=== PATIENT | female | born 1945 | race Caucasian/White ===

== ENCOUNTER → 2016-10-05 | Outpatient (CLI) | payer MEDICARE ==
[2016-10-05 10:44] LABS: Blood Urea Nitrogen 27 mg/dL (7-17); Non-African American GFR(MDRD) 57 (>60 ml/min/1.73 sqM)
--- NOTE | 2016-10-05 11:34 | CT ---
EXAMINATION TYPE: CT abdomen wo/w con DATE OF EXAM: 10/05/2016 11:14 AM COMPARISON: NONE HISTORY: Renal cyst CT DLP: 1681 mGycm Automated exposure control for dose reduction was used. TECHNIQUE: Helical acquisition of images was performed from the lung bases through the top of iliac crest to include entire abdomen. CONTRAST: Performed with Oral Contrast and without and with IV Contrast, patient injected with 100 ml mL of Omn ipaque 300. FINDINGS: LUNG BASES: No significant abnormality is appreciated. LIVER/GB: No significant abnormality is appreciated. PANCREAS: No significant abnormality is seen. SPLEEN: No significant abnormality is seen. ADRENALS: No significant abnormality is seen. KIDNEYS: Long the inferior pole of the right kidney there is a 2 cm hypoechoic lesion measuring 4 Dian nsfield units compatible with simple cyst. Along the upper pole medial margin of the right kidney there is a 1.7 cm hypoechoic mass measuring 6 Hounsfield units compatible simple cyst. Lesion is well-circumscribed. Anterior mid cortex of the right kidney measures 4 4 mm and too small to characterize but also likely benign. No hydronephrosis or nephrolithiasis. There is a 3 mm upper pole left renal calculus which is nonobst ructing. BOWEL: No significant abnormality is seen. LYMPH NODES: No pathologic adenopathy. OSSEOUS STRUCTURES: Severe degenerative disc disease L2-L3. Bulging of the disc laterally to the left . Round lucent lesion along the right lower margin of the L1 vertebral body most likely related to sm all hemangioma. OTHER: Aorta of normal caliber. IMPRESSION: 1. Right renal cysts are Bosniak classification 1 simple benign cysts. 2. Nonobstructing 3 mm upper pole left renal calculus. 3. Severe degenerative disc disease L2-L3 with disc bulging.
== END | disposition home or self-care (01) ==
LOC: RADCTMAIN 10:06
PROVIDERS: ATTEND Family Medicine
DX: N20.0 Calculus of kidney (principal); N28.1 Cyst of kidney, acquired; N28.9 Disorder of kidney and ureter, unspecified
CPT/HCPCS: 82565; 84520; 74170; 36415; Q9967

== ENCOUNTER 2019-08-15 04:21 | Emergency (ER) | payer MEDICARE ==
[2019-08-15 04:29] VITALS: RESP 18; TEMP 98.7
[2019-08-15] MEDS ORDERED: SODIUM CHLORIDE 0.9% 500 ML 500 ML IV STA ×2 (04:32→05:40)
[2019-08-15] MEDS ORDERED: ONDANSETRON 4 MG/2 ML VIAL IVP STA ×2 (04:32→05:40)
[2019-08-15] MEDS ORDERED: KETOROLAC 30 MG/ML 1 ML VIAL IVP ONE (04:45)
[2019-08-15 04:50] LABS: Appearance,Urine Clear (Clear); Bacteria,Urine Rare /hpf; Bilirubin,Urine Negative (Negative); Blood,Urine Trace (Negative); Color,Urine Yellow; Glucose,Urine (UA) Negative (Negative); Ketones,Urine Negative (Negative); Leukocyte Esterase,Urine Moderate (Negative); Mucus,Urine Few /hpf; Nitrite,Urine Negative (Negative); PH, Urine 6.5 (5.0-8.0); Protein,Urine Trace (Negative); RBC,Urine 4 /hpf (0-5); Specific Gravity,Urine 1.016 (1.001-1.035); Squamous Epithelial Cell,Urine <1 /hpf (0-4); Urobilinogen,Urine <2.0 mg/dL (<2.0); WBC,Urine 11 /hpf (0-5)
[2019-08-15 04:51] LABS: Basophils % (A) 1 %; Eosinophils # (A) 0.1 k/uL (0-0.7); Eosinophils % (A) 1 %; HCT 41.2 % (34.0-46.0); HGB 13.7 gm/dL (11.4-16.0); Lymphocytes # (A) 0.9 k/uL (1.0-4.8); Lymphocytes % (A) 18 %; MCH 29.5 pg (25.0-35.0); MCHC 33.3 g/dL (31.0-37.0); MCV 88.6 fL (80.0-100.0); Mean Platelet Volume 8.5; Monocytes # (A) 0.2 k/uL (0-1.0); Monocytes % (A) 4 %; Neutrophils # (A) 3.7 k/uL (1.3-7.7); Neutrophils % (A) 74 %; Platelet Count 226 k/uL (150-450); RBC 4.65 m/uL (3.80-5.40); RDW 13.6 % (11.5-15.5)
[2019-08-15 05:00] LABS: Albumin 4.6 g/dL (3.5-5.0); Calcium 9.7 mg/dL (8.4-10.2); Potassium 4.4 mmol/L (3.5-5.1); Total Bilirubin 0.9 mg/dL (0.2-1.3); Total Protein 7.7 g/dL (6.3-8.2)
--- NOTE | 2019-08-15 05:10 | XR ---
EXAM: XR Abdomen, 1 View CLINICAL HISTORY: ITS.REASON XR Reason: left flank pain, concern for stone TECHNIQUE: Frontal supine view of the abdomen/pelvis. COMPARISON: No relevant prior studies available. FINDINGS: Gastrointestinal tract: Nonspecific bowel gas pattern with moderate stool in the ascending colon. No dilation. Organs: There is a punctate 2 mm calcific density overlying the left renal contour. No abnormal calcifications in the region of the left ureter or abnormal calcifications within the pelvis are identified however. Bones/joints: Unremarkable. IMPRESSION: There is a punctate 2 mm calcific density overlying the left renal contour. However, no abnormal calcifications are identified radiographically within the region of the left ureter or within the region of the pelvis.
[2019-08-15] MEDS ORDERED: MORPHINE SULFATE 4 MG/ML SYRINGE IVP STA (05:38)
--- NOTE | 2019-08-15 05:44 | ED ---
Abdominal Pain HPI - General Chief Complaint: Abdominal Pain Stated Complaint: abd pain Time Seen by Provider: 08/15/19 04:32 Source: patient Mode of arrival: ambulatory Limitations: no limitations - History of Present Illness Initial Comments: Vira is a pleasant 73-year-old female who presents the ER today for evaluation of left-sided flank pain. Patient reports she initially began expressing the pain on Tuesday evening, as a severe pain in her left flank with associated nausea however it improved. Patient reports that yesterday evening she got the pain again, pain is severe and uncontrolled. Pain is in the left flank radiating the left abdomen. Patient reports urinary frequency and hesitancy but no dysuria. Eyes any fevers chills or vomiting. - Related Data Allergies Allergy/AdvReac Type Severity Reaction Status Date / Time acetaminophen [From [place]] AdvReac Nausea & Verified 08/15/19 04:28 Vomiting hydrocodone [From [place]] AdvReac Nausea & Verified 08/15/19 04:28 Vomiting Review of Systems ROS Statement: Those systems with pertinent positive or pertinent negative responses have been documented in the HPI. ROS Other: All systems not noted in ROS Statement are negative. Past Medical History Past Medical History: Fibromyalgia, Rheumatoid Arthritis (RA) Additional Past Medical History / Comment(s): DBS in head, History of Any Multi-Drug Resistant Organisms: None Reported Additional Past Surgical History / Comment(s): DBS implantation, Past Psychological History: No Psychological Hx Reported Smoking Status: Never smoker Past Alcohol Use History: None Reported Past Drug Use History: None Reported General Exam - General Exam Comments Initial Comments: Physical Exam GENERAL: Patient is well-developed and well-nourished. Patient is nontoxic and well- hydrated and is in no distress. HENT: Normocephalic, Atraumatic. EYES: PERRL, EOMI PULMONARY: Unlabored respirations. No audible rales rhonchi or wheezing was noted. CARDIOVASCULAR: There is a regular rate and rhythm without any murmurs gallops or rubs. ABDOMEN: Soft and nontender with normal bowel sounds. Tenderness to percussion of the left flank No pulsatile masses SKIN: Skin is clear with no lesions or rashes and otherwise unremarkable. : Deferred NEUROLOGIC: Patient is alert and oriented x3. Moving all extremities spontaneously MUSCULOSKELETAL: Normal extremities with adequate strength and full range of motion. No lower extremity swelling or edema. No calf tenderness. PSYCHIATRIC: Normal psychiatric evaluation. Limitations: no limitations Course Vital Signs 08/15/19 08/15/19 08/15/19 04:24 05:28 06:49 Temperature 98.7 F Pulse Rate 70 70 62 Respiratory 18 18 18 Rate Blood Pressure 160/71 182/88 145/77 O2 Sat by Pulse 95 96 96 Oximetry Medical Decision Making - Medical Decision Making The patient was seen and evaluated history is obtained from the patient and at bedside 73-year-old female with no history of kidney stones presented with left-sided flank pain, patient also has no vascular history however urinalysis is relatively unremarkable computed tomography scan with contrast was ordered to evaluate both vascular and nonvascular structures in the abdomen Patient received Toradol and reported only minimal improvement in her discomfor t, Zofran and morphine were ordered Labs resulted with no significant abnormalities only a few blood cells in the urine and no signs of infection Computed tomography scan was reviewed there is no obvious stones no hydronephrosis no perinephric fat stranding Family there is findings of renal cyst and ovarian cyst. These findings were discussed with the patient states her pain was not her pelvic she doesn't feel any further imaging for that is indicated she declined ultrasound. At this time patient's pain has improved significantly she is comfortable with plan for discharge home despite no definitive findings for her pain. We did discuss possibility that she passed a kidney stone. All questions pertaining care were answered best my ability close return parameters were discussed and the patient was discharged home in stable condition. - Lab Data Result diagrams: 08/15/19 04:35 08/15/19 04:35 Lab Results 08/15/19 08/15/19 08/15/19 Range/Units 04:30 04:35 04:35 WBC 5.0 (3.8-10.6) k/uL RBC 4.65 (3.80-5.40) m/uL Hgb 13.7 (11.4-16.0) gm/dL Hct 41.2 (34.0-46.0) % MCV 88.6 (80.0-100.0) fL MCH 29.5 (25.0-35.0) pg MCHC 33.3 (31.0-37.0) g/dL RDW 13.6 (11.5-15.5) % Plt Count 226 (150-450) k/uL Neutrophils % 74 % Lymphocytes % 18 % Monocytes % 4 % Eosinophils % 1 % Basophils % 1 % Neutrophils # 3.7 (1.3-7.7) k/uL Lymphocytes # 0.9 L (1.0-4.8) k/uL Monocytes # 0.2 (0-1.0) k/uL Eosinophils # 0.1 (0-0.7) k/uL Basophils # 0.0 (0-0.2) k/uL Sodium 139 (137-145) mmol/L Potassium 4.4 (3.5-5.1) mmol/L Chloride 106 (98-107) mmol/L Carbon Dioxide 25 (22-30) mmol/L Anion Gap 8 mmol/L BUN 21 H (7-17) mg/dL Creatinine 1.00 (0.52-1.04) mg/dL Est GFR (CKD-EPI)AfAm 66 (>60 ml/min/1.73 sqM) Est GFR (CKD-EPI)NonAf 57 (>60 ml/min/1.73 sqM) Glucose 128 H (74-99) mg/dL Calcium 9.7 (8.4-10.2) mg/dL Total Bilirubin 0.9 (0.2-1.3) mg/dL AST 28 (14-36) U/L ALT 20 (9-52) U/L Alkaline Phosphatase 131 H (38-126) U/L Total Protein 7.7 (6.3-8.2) g/dL Albumin 4.6 (3.5-5.0) g/dL Lipase 80 (23-300) U/L Urine Color Yellow Urine Appearance Clear (Clear) Urine pH 6.5 (5.0-8.0) Ur Specific [place] 1.016 (1.001-1.035) Urine Protein Trace H (Negative) Urine Glucose (UA) Negative (Negative) Urine Ketones Negative (Negative) Urine Blood Trace H (Negative) Urine Nitrite Negative (Negative) Urine Bilirubin Negative (Negative) Urine Urobilinogen <2.0 (<2.0) mg/dL Ur Leukocyte Esterase Moderate H (Negative) Urine RBC 4 (0-5) /hpf Urine WBC 11 H (0-5) /hpf Ur Squamous Epith Cells <1 (0-4) /hpf Urine Bacteria Rare H (None) /hpf Urine Mucus Few H (None) /hpf Disposition Clinical Impression: Left flank pain, Ovarian cyst, left Disposition: HOME SELF-CARE Condition: Stable Instructions (If sedation given, give patient instructions): Flank Pain (ED) Is patient prescribed a controlled substance at d/c from ED?: No Referrals: Jane Vinson MD [Primary Care Provider] - 1-2 days
--- NOTE | 2019-08-15 06:00 | CT ---
EXAM: CT Abdomen and Pelvis With Intravenous Contrast CLINICAL HISTORY: flank pain TECHNIQUE: Axial computed tomography images of the abdomen and pelvis with intravenous contrast. CTDI is 23.6 mGy and DLP is 1055.1 mGy-cm. This CT exam was performed using one or more of the following dose reduction techniques: automated exposure control, adjustment of the mA and/or kV according to patient size, and/or use of iterative reconstruction technique. COMPARISON: 10/05/2016 FINDINGS: Lung bases: Subsegmental linear changes at the left lung base adjacent to the diaphragm are presumed atelectasis. ABDOMEN: Liver: Unremarkable. No mass. Gallbladder and bile ducts: Unremarkable. No calcified stones. No ductal dilation. Pancreas: Unremarkable. No mass. No ductal dilation. Spleen: Unremarkable. No splenomegaly. Adrenals: Unremarkable. No mass. Kidneys and ureters: There is a nonobstructive incidental 5 mm nephrolithiasis involving the superior pole left kidney. The kidneys demonstrate normal enhancement bilaterally. No ureteral stones or hydronephrosis identified. The cortical cyst involving the right kidney have increased with the largest measuring 2.7 cm superomedially from 2.3 cm previously. Stomach and bowel: Unremarkable. No obstruction. No mucosal thickening. PELVIS: Appendix: A normal caliber appendix is noted in the right lower quadrant lateral to the cecum. Cystic changes are suggested involving the left adnexa, poorly evaluated by CT examination. Bladder: Unremarkable. No mass. Reproductive: Unremarkable as visualized. ABDOMEN and PELVIS: Intraperitoneal space: Unremarkable. No free air. No significant fluid collection. Bones/joints: No acute fracture. No dislocation. Soft tissues: Unremarkable. Vasculature: Unremarkable. No abdominal aortic aneurysm. Lymph nodes: Unremarkable. No enlarged lymph nodes. IMPRESSION: 1. No ureteral stones or hydronephrosis identified. Incidental 5 mm nonobstructive nephrolithiasis involving the superior pole the left kidney. No bladder calcifications. 2. Probable cystic changes involving the left adnexa, poorly defined by CT evaluation. This is a presumed incidental finding. However, please correlate with clinical symptoms. 3. Normal appendix. No evidence for bowel obstruction. No free intraperitoneal fluid or pneumoperitoneum.
[2019-08-15 06:50] VITALS: BP 145/77; PULSE 62
== END 2019-08-15 07:17 | disposition home or self-care (01) ==
LOC: EC 04:21
DX: N83.202 Unspecified ovarian cyst, left side (principal); R31.9 Hematuria, unspecified; N28.1 Cyst of kidney, acquired; R11.0 Nausea; R39.11 Hesitancy of micturition; R35.0 Frequency of micturition; Z88.5 Allergy status to narcotic agent; Z88.6 Allergy status to analgesic agent; Z53.20 Procedure and treatment not carried out because of patient's decision for unspecified reasons
CPT/HCPCS: 99284; 96374; 96375 ×2; 96376; 36415; 80053; 83690; 85025; 81001; 87086; 74018; 74177; J2270; J2405; J1885; Q9967

== ENCOUNTER 2019-08-16 09:19 | Emergency (ER) | payer MEDICARE ==
[2019-08-16 09:32] VITALS: TEMP 98.6
--- NOTE | 2019-08-16 10:19 | ED ---
Abdominal Pain HPI - General Chief Complaint: Abdominal Pain Stated Complaint: kidney stones Time Seen by Provider: 08/16/19 10:02 Source: patient Mode of arrival: ambulatory Limitations: no limitations - History of Present Illness Initial Comments: Patient is a 73-year-old female presenting to the emergency Department with complaints of left-sided abdominal pain for the past 4 days. Patient was in the ER yesterday for same complaint and was told she probably passed a kidney stone. She did have imaging performed yesterday and they did see a 5 mm stone in the left kidney. The rest of her workup showed no other acute abnormalities. Patient was comfortable upon discharge however this morning patient is still having significant pain. Patient did go see her PCP yesterday who gave her Zofran for nausea as well as started her on Cipro. Patient states she is still nauseous this morning and states the pain has moved down to her left lower quadr ant. Patient denies fever, chills, vomiting, diarrhea. Patient has no other complaints at this time. Upon arrival to the ER, her vital signs are stable. - Related Data Allergies Allergy/AdvReac Type Severity Reaction Status Date / Time acetaminophen [From [place]] AdvReac Nausea & Verified 08/16/19 09:32 Vomiting hydrocodone [From [place]] AdvReac Nausea & Verified 08/16/19 09:32 Vomiting Review of Systems ROS Statement: Those systems with pertinent positive or pertinent negative responses have been documented in the HPI. ROS Other: All systems not noted in ROS Statement are negative. Past Medical History Past Medical History: Fibromyalgia, Rheumatoid Arthritis (RA) Additional Past Medical History / Comment(s): DBS in head, History of Any Multi-Drug Resistant Organisms: None Reported Additional Past Surgical History / Comment(s): DBS implantation, Past Psychological History: No Psychological Hx Reported Smoking Status: Never smoker Past Alcohol Use History: None Reported Past Drug Use History: None Reported General Exam - General Exam Comments Initial Comments: GENERAL: Well-appearing, well-nourished and in no acute distress. HEAD: Atraumatic, normocephalic. EYES: Pupils equal round and reactive to light, extraocular movements intact, sclera anicteric, conjunctiva are normal. ENT: TMs normal, nares patent, oropharynx clear without exudates. Moist mucous membranes. NECK: Normal range of motion, supple without lymphadenopathy or JVD. LUNGS: Breath sounds clear to auscultation bilaterally and equal. No wheezes rales or rhonchi. HEART: Regular rate and rhythm without murmurs, rubs or gallops. ABDOMEN: Tender to palpation of the left lower quadrant as well as left side of abdomen. Soft, normoactive bowel sounds. No guarding, no rebound. No masses appreciated. : Deferred EXTREMITIES: Normal range of motion, no pitting or edema. No clubbing or cyanosis. NEUROLOGICAL: Normal speech, normal gait. PSYCH: Normal mood, normal affect. SKIN: Warm, Dry, normal turgor, no rashes or lesions noted. Limitations: no limitations Course Vital Signs 08/16/19 08/16/19 08/16/19 09:29 09:32 10:32 Temperature 98.6 F 98.6 F Pulse Rate 69 69 69 Respiratory 20 20 20 Rate Blood Pressure 142/81 142/81 O2 Sat by Pulse 96 96 96 Oximetry 08/16/19 12:24 Temperature Pulse Rate 67 Respiratory 18 Rate Blood Pressure 141/75 O2 Sat by Pulse 96 Oximetry Medical Decision Making - Medical Decision Making Patient is 73-year-old female presenting with left sided abdominal pain 4 days. Patient was worked up yesterday the ER for same complaint and was diagnosed with possible kidney stone. Patient was comfortable upon discharge yesterday and returns today for continued pain and nausea. Patient did go to her PCP yesterday who started her on Cipro and Zofran. Vital signs are stable. KUB continues to show and left-sided nephrolithiasis approximate 4-5 mm. No other findings. Lab work is similar to yesterday's workup. Patient was given half a liter fluids as well as pain meds, Zofran and reports improvement in her s ymptoms. Patient is stable for discharge at this time. Patient will be given dose of Rocephin before DC. Patient will follow up with urology. Patient is agreeable with this plan of care. Return parameters were discussed with the patient she verbalized understanding. Case discussed with Dr. Boykin. - Lab Data Result diagrams: 08/16/19 09:50 08/16/19 09:50 Lab Results 08/16/19 08/16/19 08/16/19 Range/Units 09:50 09:50 09:50 WBC 5.4 (3.8-10.6) k/uL RBC 5.13 (3.80-5.40) m/uL Hgb 15.1 (11.4-16.0) gm/dL Hct 45.9 (34.0-46.0) % MCV 89.5 (80.0-100.0) fL MCH 29.4 (25.0-35.0) pg MCHC 32.8 (31.0-37.0) g/dL RDW 13.6 (11.5-15.5) % Plt Count 202 (150-450) k/uL Neutrophils % 81 % Lymphocytes % 10 % Monocytes % 5 % Eosinophils % 1 % Basophils % 1 % Neutrophils # 4.4 (1.3-7.7) k/uL Lymphocytes # 0.6 L (1.0-4.8) k/uL Monocytes # 0.3 (0-1.0) k/uL Eosinophils # 0.1 (0-0.7) k/uL Basophils # 0.0 (0-0.2) k/uL Sodium 141 (137-145) mmol/L Potassium 4.1 (3.5-5.1) mmol/L Chloride 105 (98-107) mmol/L Carbon Dioxide 26 (22-30) mmol/L Anion Gap 10 mmol/L BUN 20 H (7-17) mg/dL Creatinine 1.13 H (0.52-1.04) mg/dL Est GFR (CKD-EPI)AfAm 57 (>60 ml/min/1.73 sqM) Est GFR (CKD-EPI)NonAf 49 (>60 ml/min/1.73 sqM) Glucose 116 H (74-99) mg/dL Calcium 10.1 (8.4-10.2) mg/dL Total Bilirubin 0.9 (0.2-1.3) mg/dL AST 30 (14-36) U/L ALT 20 (9-52) U/L Alkaline Phosphatase 135 H (38-126) U/L Total Protein 8.8 H (6.3-8.2) g/dL Albumin 5.2 H (3.5-5.0) g/dL Urine Color Yellow Urine Appearance Cloudy H (Clear) Urine pH 6.0 (5.0-8.0) Ur Specific [place] 1.031 (1.001-1.035) Urine Protein 2+ H (Negative) Urine Glucose (UA) Negative (Negative) Urine Ketones 1+ H (Negative) Urine Blood Trace H (Negative) Urine Nitrite Negative (Negative) Urine Bilirubin Negative (Negative) Urine Urobilinogen 2.0 (<2.0) mg/dL Ur Leukocyte Esterase Trace H (Negative) Urine RBC 6 H (0-5) /hpf Urine WBC 4 (0-5) /hpf Ur Squamous Epith Cells 3 (0-4) /hpf Calcium Oxalate Crystal Occasional H (None) /hpf Urine Bacteria Rare H (None) /hpf Hyaline Casts 37 H (0-2) /lpf Urine Mucus Many H (None) /hpf Disposition Clinical Impression: Left flank pain Disposition: HOME SELF-CARE Condition: Stable Instructions (If sedation given, give patient instructions): Abdominal Pain (ED) Additional Instructions: Please return to the Emergency Department if symptoms worsen or any other concerns. Follow-up with urology. Continue with antibiotics as prescribed. Use Zofran as needed for nausea. Is patient prescribed a controlled substance at d/c from ED?: No Referrals: Jane Vinson MD [Primary Care Provider] - 1-2 days Roger Nazario MD [STAFF PHYSICIAN] - 1-2 days
[2019-08-16 10:29] LABS: Basophils % (A) 1 %; Eosinophils # (A) 0.1 k/uL (0-0.7); Eosinophils % (A) 1 %; HCT 45.9 % (34.0-46.0); HGB 15.1 gm/dL (11.4-16.0); Lymphocytes # (A) 0.6 k/uL (1.0-4.8); Lymphocytes % (A) 10 %; MCH 29.4 pg (25.0-35.0); MCHC 32.8 g/dL (31.0-37.0); MCV 89.5 fL (80.0-100.0); Mean Platelet Volume 8.5; Monocytes # (A) 0.3 k/uL (0-1.0); Monocytes % (A) 5 %; Neutrophils # (A) 4.4 k/uL (1.3-7.7); Neutrophils % (A) 81 %; Platelet Count 202 k/uL (150-450); RBC 5.13 m/uL (3.80-5.40); RDW 13.6 % (11.5-15.5); WBC 5.4 k/uL (3.8-10.6)
[2019-08-16 10:37] LABS: Appearance,Urine Cloudy (Clear); Bacteria,Urine Rare /hpf; Bilirubin,Urine Negative (Negative); Blood,Urine Trace (Negative); Calcium Oxalate Crystals,Urine Occasional /hpf; Color,Urine Yellow; Glucose,Urine (UA) Negative (Negative); Hyaline Casts,Urine 37 /lpf (0-2); Ketones,Urine 1+ (Negative); Leukocyte Esterase,Urine Trace (Negative); Mucus,Urine Many /hpf; Nitrite,Urine Negative (Negative); Protein,Urine 2+ (Negative); RBC,Urine 6 /hpf (0-5); Specific Gravity,Urine 1.031 (1.001-1.035); Squamous Epithelial Cell,Urine 3 /hpf (0-4); WBC,Urine 4 /hpf (0-5)
[2019-08-16 10:41] LABS: Albumin 5.2 g/dL (3.5-5.0); Calcium 10.1 mg/dL (8.4-10.2); Potassium 4.1 mmol/L (3.5-5.1); Total Bilirubin 0.9 mg/dL (0.2-1.3); Total Protein 8.8 g/dL (6.3-8.2)
[2019-08-16] MEDS: ONDANSETRON 4 MG/2 ML VIAL IVP STA (10:47)
[2019-08-16] MEDS: KETOROLAC 30 MG/ML 1 ML VIAL IVP STA (10:47)
--- NOTE | 2019-08-16 11:04 | XR ---
KUB HISTORY: Left abdominal pain Frontal KUB and 2 images There are calcifications superimposed of the left kidney one of which measures approximately 4 to 5 m m, additional calcification may be present immediately to the medial aspect at this level the upper p ole the left kidney. Overlying bowel gas may obscure underlying detail. There is a scoliotic curvatur e to the spine. No evident pneumoperitoneum or bowel obstruction. Bone mineralization is maintained. Generator present over the right pectoral region. impression: Left-sided nephrolithiasis is favored. Scoliosis and additional findings above.
[2019-08-16] MEDS: traMADol 50 MG STARTER PACK 3 TAB BTL PO STA (12:21)
[2019-08-16] MEDS: cefTRIAXone IN SWFI 1,000 MG/10 ML SYRINGE IVP STA (12:21)
[2019-08-16] MEDS: SODIUM CHLORIDE 0.9% 500 ML 500 ML IV STA (12:21)
[2019-08-16] MEDS: MORPHINE SULFATE 4 MG/ML SYRINGE IVP STA (12:22)
[2019-08-16 12:25] VITALS: BP 141/75; PULSE 67; RESP 18
== END 2019-08-16 12:40 | disposition home or self-care (01) ==
LOC: EC 09:19
DX: R10.32 Left lower quadrant pain (principal); R11.0 Nausea; N20.0 Calculus of kidney; Z88.5 Allergy status to narcotic agent; Z88.6 Allergy status to analgesic agent
CPT/HCPCS: 36415; 80053; 85025; 81001; 74018; 99284; 96374; 96375 ×3; J2270; J2405; J0696; J1885

== ENCOUNTER 2019-08-21 12:12 | Day surgery (SDC) | payer MEDICARE ==
[2019-08-20 13:33] VITALS: BMI 25.8
[~2019-08-21 12:12] MED LIST: DEXAMETHASONE SOD PHOSPHATE 10 MG/ML 1 ML VIAL IV ONE; LACTATED RINGERS 1,000 ML IV SCH; LIDOCAINE 1% 20 ML VIAL (10MG/ML) FOR IV START INTRADERMA PRN; MIDAZOLAM 2 MG/2 ML VIAL IV PRN; ONDANSETRON 4 MG/2 ML VIAL IVP ONE; SCOPOLAMINE 1.5MG/72HR PATCH TRANSDERM ONE
--- NOTE | 2019-08-21 12:43 | XR ---
EXAMINATION TYPE: XR KUB DATE OF EXAM: 08/21/2019 COMPARISON: 08/16/2019 HISTORY: Left-sided back pain. Presurgical evaluation for left-sided nephrolithiasis. TECHNIQUE: Single upright view of the abdomen was obtained FINDINGS: There is redemonstration of a 5 mm left renal calculus. Additional questionable calculus se en more medial overlying the left renal shadow remains ill-defined. Mild degree colonic fecal stasis. Lung bases are well aerated. Redemonstration of a levoscoliosis of the thoracolumbar junction and de generative changes of the spine. No dilated large or small bowel. IMPRESSION: Similar 5 mm left renal calculus and additional faint possible second more medial left re nal calculus.
[2019-08-21] MEDS ORDERED: fentaNYL (PF) 50 MCG/ML 2 ML AMP IV ONE (12:53)
[2019-08-21] MEDS ORDERED: ePHEDrine SULFATE/0.9% NACL/PF 50 MG/5 ML SYRINGE IV ONE (13:14)
[2019-08-21] MEDS ORDERED: LIDOCAINE 1% INJ 10MG/ML (20 ML MDV) ONE (13:14)
[2019-08-21] MEDS ORDERED: PROPOFOL 10 MG/ML 20 ML VIAL IV ONE (13:14)
[2019-08-21] MEDS ORDERED: fentaNYL (PF) 50 MCG/ML 2 ML AMP ONE (13:14)
[2019-08-21] MEDS ORDERED: MIDAZOLAM 2 MG/2 ML VIAL ONE (13:14)
[2019-08-21] MEDS ORDERED: SODIUM CHLORIDE 0.9% 50 ML with ceFAZolin 1,000 MG IV ONE ×2 (13:19)
[2019-08-21] MEDS ORDERED: IOPAMIDOL-370 50ML BTL IRRIGATION ONE (13:36)
[2019-08-21 14:27] VITALS: TEMP 99
--- NOTE | 2019-08-21 14:38 | FL ---
EXAMINATION TYPE: FL urography retrograde DATE OF EXAM: 08/21/2019 COMPARISON: NONE HISTORY: Left renal stone. TECHNIQUE: Fluoroscopy. FINDINGS: Fluoroscopic guidance was provided during left ureter stone treatment procedure performed by Dr. Hahn. A total of 57 seconds of fluoroscopic time was utilized during the procedure and singl e spot intraoperative image is acquired. Single image acquired shows advancement of catheter and cont rast injection of left renal pelvis. IMPRESSION: As Above.
--- NOTE | 2019-08-21 14:53 | P.OP ---
Date of Procedure: 08/21/19 Preoperative Diagnosis: left flank pain, left renal stone Postoperative Diagnosis: left flank pain, left tubular stone Procedure(s) Performed: cystoscopy, left retrograde pyelogram, left ureteroscopy with intraoperative pyelogram, placement of 624 double-J catheter Anesthesia: MARIELENA Surgeon: Luis Hahn Estimated Blood Loss (ml): 10 Pathology: none sent Condition: stable Disposition: PACU Indications for Procedure: the patient is 73. She is referred to Dr. Crowell in the emergency room with severe left flank pain going on for 1 week. She had a computed tomography scan identifying a 5 mm upper pole stone without obstruction. She had no infection in the urine. She's not had a bowel movement a week. It was felt that the stone was a cause of her pain. I was not totally certain the patient adamantly wish to have the stone out. She thus comes for ureteroscopy retrograde pyelogram stone removal the risks and complications were outlined. Description of Procedure: the patient is brought to the operating suite. Given a general endotracheal anesthesia. She's placed lithotomy position with sterile prep and drape. The stone was seen on KUB but not easily seen on fluoroscopy. Cystoscopy with a 23- [place] sheath identifies a normal urethra. The ureters orifices are normal bladder mucosa is unremarkable. Within a cone-tipped catheter a left retrograde pyelograms performed the ureters of normal course and caliber there is no filling defect or obstruction. The ureter drained nicely. The collecting system was delicate and and quite spidery. There is no distinct filling defect noted. I passed an 035 wire up into the collecting system. Over the wires passed [id number] reentry sheath. The inner sheath is removed. Through the 13-Gibraltarian sheath and passed the flexible ureteroscope into the collecting system. I tediously look through the complete collecting system all the upper and middle pole and the lower pole calyces both major and minor. I do not see evidence of the stone. A pullback of the renal pelvis I perform an intraoperative nephrographic nephrostogram to see if I can see any filling defect or obvious stone. I do not. I then again make sure I look in each major and minor calyx to see if there is any stone and there is not. I therefore assumed that this must be a parenchymal or tubular stone. I really look at the computed tomography scan and KUB. I do one more look throughout the collecting system see no stone. I removed the ureteroscope. Through the sheath I passed a wire. I removed the sheath and over the wires passed a 6 x 24 double-J catheter will remain in for 48 hours to deal with the sheath edema. Patient awake and returned recovery room good condition Impression I do not have an immediate cause for this patient's left flank pain. The calcification seen is probably tubular or parenchymal. At this juncture the options are to do nothing, to do shockwave lithotripsy.refer to a Medical Center. I will insist that she have some bowel activity before anything else gets done. We may consider a second opinion if we cannot find an obvious cause for her pain.
[2019-08-21] MEDS: HYDROmorphone 0.5 MG/0.5 ML SYRINGE IVP PRN ×2 (15:01→15:21)
[2019-08-21 15:32] VITALS: RESP 16
[2019-08-21 16:23] VITALS: BP 154/77; PULSE 63
[2019-08-21] MEDS ORDERED: ACETAMINOPHEN TAB 500 MG TAB PO ONE (16:26)
== END 2019-08-21 17:02 | disposition home or self-care (01) ==
LOC: OR 12:12
PROVIDERS: ATTEND Urology
DX: N20.0 Calculus of kidney (principal); K59.00 Constipation, unspecified; M79.7 Fibromyalgia; M06.9 Rheumatoid arthritis, unspecified; R25.1 Tremor, unspecified; Z96.89 Presence of other specified functional implants; Z88.5 Allergy status to narcotic agent
CPT/HCPCS: 52351; 52332; 74420; 74018; C2625; C1758; C1769; J2250; J1100; J2405; J0690; J2001; J3010; J2704; J1170; Q9967

== ENCOUNTER → 2019-09-07 | Outpatient (CLI) | payer MEDICARE ==
--- NOTE | 2019-09-07 09:24 | US ---
EXAMINATION TYPE: US pelvis complete transvag. There is DATE OF EXAM: 09/07/2019 COMPARISON: None CLINICAL HISTORY: 74-year-old female N83.202 Unspecified ovarian cyst, left side. Patient states whil e looking for renal stones, cyst was seen on ovary. Left side discomfort but states she has chronic back pain. TECHNIQUE: Transabdominal sonographic images of the pelvis were acquired. Transvaginal sonographic images were medically necessary to better assess the following anatomy: Ovaries, endometrium. Color D oppler and spectral waveform analysis of the ovarian arteries and veins. Date of LMP: Unknown, FINDINGS: EXAM MEASUREMENTS: Uterus: 7.2 x 5.3 x 3.1 cm Endometrial Stripe: 0.2 cm Left Ovary: 3.0 x 2.8 x 1.9 cm 1. Uterus: Anteverted. Heterogenous. No focal masses or lesions seen. 2. Endometrium: Fluid visualized within endometrial cavity. The stripe itself appears thin. 3. Right Ovary: Obscured by overlying bowel gas 4. Left Ovary: cystic appearing lesion with internal echoes = 2.5 x 2.5 x 1.6 cm and internal septat ion. Spectral, color and waveform doppler imaging shows good arterial and venous flow within the left ov judah; there is no evidence for ovarian torsion. 5. Bilateral Adnexa: wnl 6. Posterior cul-de-sac: no free fluid 7. Cervix: Vascular hypoechoic lesion visualized anteriorly measuring 1.3 x 1.0 x 0.5 cm . Some addit ional heterogeneous material within the endocervical canal. IMPRESSION: 1. Possible 1.3 similar lesion within the anterior cervix. Consider Pap smear and possibly female pel esha MRI to further evaluate. 2. Some heterogeneous material within the endocervical canal. Correlate with direct inspection and Pa p smear as indicated. 3. Small amount of fluid within the uterine cavity. 4. Mildly complex cystic lesion of the left ovary measures 2.5 cm. This can be further characterized on MRI. 5. Right ovary not visualized.
== END | disposition home or self-care (01) ==
LOC: RADUSWWP 07:33
PROVIDERS: ATTEND Family Medicine
DX: N83.292 Other ovarian cyst, left side (principal); R93.89 Abnormal findings on diagnostic imaging of other specified body structures
CPT/HCPCS: 76830; 76856; 93976

== ENCOUNTER → 2020-09-15 | Outpatient (CLI) | payer MEDICARE ==
--- NOTE | 2020-09-15 12:46 | US ---
EXAMINATION TYPE: US carotid duplex BILAT DATE OF EXAM: 09/15/2020 COMPARISON: NONE CLINICAL HISTORY: 75-year-old female R09.89 CAROTID BRUIT. TECHNIQUE: Carotid duplex ultrasound examination. Indirect Doppler criteria was utilized. FINDINGS: EXAM MEASUREMENTS: RIGHT: Peak Systolic Velocity (PSV) cm/sec ----- Right CCA: 70.5 ----- Right ICA: 76.3 ----- Right ECA: 42.9 ICA/CCA ratio: 1.1 RIGHT: End Diastole cm/sec ----- Right CCA: 18.8 ----- Right ICA: 27.9 ----- Right ECA: 0.0 LEFT: Peak Systolic Velocity (PSV) cm/sec ----- Left CCA: 97.1 ----- Left ICA: 120.5 ----- Left ECA: 56.3 ICA/CCA ratio: 1.2 LEFT: End Diastole cm/sec ----- Left CCA: 24.5 ----- Left ICA: 33.7 ----- Left ECA: 10.6 VERTEBRALS (direction of flow): Right Vertebral: Antegrade Left Vertebral: Antegrade Rhythm: Normal Drywall Taper notes: Bilateral intimal thickening, no elevated velocities, no significant stenosis. IMPRESSION: No hemodynamically significant internal carotid artery stenosis on either side. Criteria for Assigning % of Stenosis / Diameter reduction (Estimation based on the indirect measurements of the internal carotid artery velocities (ICA PSV). 1. Normal (no stenosis)=ICA PSV < 125 cm/s: ratio < 2.0: ICA EDV<40 cm/s. 2. Less than 50% stenosis=ICA PSV < 125 cm/s: ratio < 2.0: ICA EDV<40 cm/s. 3. 50 to 69% stenosis=ICA PSV of 125 to 230 cm/s: ration 2.0 ? 4.0: ICA EDV 40-100 cm/s. 4. Greater than 70% stenosis to near occlusion= ICA PSV > 230 cm/s: ratio > 4.0: ICA EDV > 100 cm/s. 5. Near occlusion= ICA PSV velocities may be low or undetectable: variable ratio and ICA EDV. 6. Total occlusion=unable to detect flow.
--- NOTE | 2020-09-15 18:41 | ECHOF ---
Referral Reason:R06.00 dyspnea MEASUREMENTS -------- HEIGHT: 172.7 cm WEIGHT: 83.0 kg BP: RVIDd: 3.1 cm (< 3.3) IVSd: 1.2 cm (0.6 - 1.1) LVIDd: 4.6 cm (3.9 - 5.3) LVPWd: 1.2 cm (0.6 - 1.1) IVSs: 1.5 cm LVIDs: 4.0 cm LVPWs: 1.3 cm LA Diam: 3.6 cm (2.7 - 3.8) LAESV Index (A-L): 31.88 ml/m Ao Diam: 2.9 cm (2.0 - 3.7) AV Cusp: 2.2 cm (1.5 - 2.6) LA Diam: 3.8 cm (2.7 - 3.8) MV EXCURSION: 18.105 mm (> 18.000) MV EF SLOPE: 64 mm/s (70 - 150) EPSS: 0.6 cm MV E Lewis: 0.41 m/s MV DecT: 279 ms MV A Lewis: 0.70 m/s MV E/A Ratio: 0.59 RAP: 5.00 mmHg RVSP: 28.04 mmHg FINDINGS -------- Sinus rhythm. This was a technically good study. LV size, wall thickness and systolic function are normal, with an EF greater than 55%. The left nancy tricular size is normal. The right ventricle is normal in size. LA is midly dilated 29-33ml/m2. The right atrial size is normal. The aortic valve is trileaflet, and appears structurally normal. No aortic stenosis or regurgitation. Mild mitral regurgitation is present. Mild tricuspid regurgitation present. Right ventricular systolic pressure is normal at < 35 mmHg. There is no pulmonic regurgitation present. The aortic root size is normal. There is no pericardial effusion. CONCLUSIONS -------- 1. LV size, wall thickness and systolic function are normal, with an EF greater than 55%. 2. The left ventricular size is normal. 3. The right ventricle is normal in size. 4. LA is midly dilated 29-33ml/m2. 5. The right atrial size is normal. 6. Mild mitral regurgitation is present. 7. Mild tricuspid regurgitation present. 8. The aortic root size is normal. 9. There is no pericardial effusion. LEAD BASED PAINT TECHNICIAN: Nancy Moralez RDCS
== END | disposition home or self-care (01) ==
LOC: RADUSWWP 10:53
PROVIDERS: ATTEND Family Medicine
DX: I08.1 Rheumatic disorders of both mitral and tricuspid valves (principal); R09.89 Other specified symptoms and signs involving the circulatory and respiratory systems
CPT/HCPCS: 93306; 93880

== ENCOUNTER → 2020-10-29 | Outpatient (CLI) | payer MEDICARE ==
--- NOTE | 2020-10-29 18:45 | BD ---
EXAMINATION TYPE: Axial Bone Density DATE OF EXAM: 10/29/2020 COMPARISON: 03/05/2015 CLINICAL HISTORY: 75-year-old female postmenopausal screening Height: 5 FT 9 3/4 IN Weight: 188 FRAX RISK QUESTIONS: Alcohol (3 or more units per day): NO Family History (Parent hip fracture): NO Glucocorticoids (More than 3mos): NO (Ex: prednisone, prednisolone, methylprednisolone, dexamethasone, and hydrocortisone). History of Fracture in Adulthood: YES Secondary Osteoporosis: 1. Type 1 Diabetes: NO 2. Hyperthyroidism: NO 3. Menopause before 45: NO 4. Malnutrition: NO 5. Chronic liver disease: NO Rheumatoid Arthritis: YES Current Tobacco Use: NO RISK FACTORS HISTORY OF: Family History of Osteoporosis: YES Active: YES Diet low in dairy products/other sources of calcium: NO Postmenopausal woman: AGE 53 Take estrogen and/or progesterone medications: NONE Lost more than 2 inches in height since high school: YES MEDICATIONS: Additional Medications: LYRICA, PROPANOLOL, FOLIC ACID, METHOTREXATE, Additional History: RT TIBIA FX AUG 2020 EXAM MEASUREMENTS: Bone mineral densitometry was performed using the [employer] System. Bone mineral density as measured about the Lumbar spine is: ----- L1-L4(G/cm2): 1.226 T Score Values are as follows: ----- L2: 0.3 ----- L3: 1.9 ----- L4: 0.1 ----- L1-L4: 0.4 Bone mineral density has: INCREASED 7.9 % since study of: 2014 Bone mineral density about the R hip (g/cm2): 0.856 Bone mineral density about the L hip (g/cm2): 0.897 T Score values are as follows: -----R Neck: -1.3 -----L Neck: -1.0 -----R Total: -1.5 -----L Total: -1.1 Bone mineral density has: DECREASED -3.0 % since study of: 2014 IMPRESSION: Osteopenia (T Score between -2.5 and -1). There is slightly increased risk of fracture and the patient may be considered for treatment. Re-Screen 2-5 years. NOTE: T-SCORE=SD OF THE YOUNG ADULT MEAN.
--- NOTE | 2020-11-05 07:59 | MM ---
Reason for exam: screening (asymptomatic). Last mammogram was performed 4 years and 8 months ago. History: Patient is postmenopausal. Cyst aspiration of both breasts. Physical Findings: A clinical breast exam by your physician is recommended on an annual basis and results should be correlated with mammographic findings. MG 3D Screening Mammo W/Cad Bilateral CC, MLO, and XCCL view(s) were taken. Prior study comparison: July 18, 2019, mammogram, performed at [facility]. July 12, 2017, mammogram, performed at [facility]. March 10, 2016, bilateral MG 3d screening mammo w/cad. March 05, 2015, bilateral MG screening mammo w CAD. The breast tissue is heterogeneously dense. This may lower the sensitivity of mammography. Focal asymmetry left breast, stable. No significant changes when compared with prior studies. ASSESSMENT: Benign, BI-RAD 2 RECOMMENDATION: Routine screening mammogram of both breasts in 1 year.
== END ==
LOC: RADMAMWWP 09:20
PROVIDERS: ATTEND Family Medicine
DX: Z12.31 Encounter for screening mammogram for malignant neoplasm of breast (principal); M85.80 Other specified disorders of bone density and structure, unspecified site; Z78.0 Asymptomatic menopausal state
CPT/HCPCS: 77063; 77067; 77080

== ENCOUNTER → 2020-12-17 | Outpatient (CLI) | payer MEDICARE ==
--- NOTE | 2020-12-17 16:05 | US ---
EXAMINATION TYPE: US transvaginal DATE OF EXAM: 12/17/2020 COMPARISON: 09/07/2019 CLINICAL HISTORY: Ovarian Cyst N83.20. h/o left ovarian cyst, some pelvic pain in LLQ TECHNIQUE: TV. Transvaginal sonographic images Date of LMP: 22yrs ago EXAM MEASUREMENTS: Uterus: 6.9 x 3.6 x 3.1 cm Endometrial Stripe: 0.3 cm Right Ovary: not seen Left Ovary: 1.7 x 2.3 x 2.9 cm 1. Uterus: Anteverted heterogeneous 2. Endometrium: wnl 3. Right Ovary: not seen due to atrophy and bowel gas 4. Left Ovary: cystic area persists from previous exam, 2.8 x 1.5 x 1.1cm septated cyst seen. Previo us measurement 2.5 x 2.5 x 1.6 cm. 5. Bilateral Adnexa: wnl 6. Posterior cul-de-sac: wnl IMPRESSION: 1. Complex cyst left ovary remaining present from comparison was may be slightly smaller than compari son. Consider additional workup
== END | disposition home or self-care (01) ==
LOC: RADUSWWP 14:53
PROVIDERS: ATTEND Pharmacist
DX: N83.202 Unspecified ovarian cyst, left side (principal)
CPT/HCPCS: 76830

== ENCOUNTER → 2021-08-03 | Outpatient (CLI) | payer MEDICARE ==
--- NOTE | 2021-08-03 21:21 | XR ---
EXAMINATION TYPE: XR ribs LT w pa chest xray DATE OF EXAM: 08/03/2021 CLINICAL HISTORY: Chest and left-sided rib pain. TECHNIQUE: Single frontal view of the chest is obtained. Frontal and oblique images left-sided ribs. COMPARISON: None FINDINGS: There is mild chronic parenchymal change with patchy left basilar opacity. Right lung is c lear. The cardiac silhouette size is within normal limits. Overlying stimulator device right chest d escends the right neck outside the field of view. Underlying scoliotic curvature. Dedicated images of the left-sided ribs show no acute displaced fracture. Overlying soft tissues are unremarkable. Impression: 1. Patchy left basilar infiltrate and/or atelectasis. 2. No acute displaced left-sided rib fractures.
--- NOTE | 2021-08-03 21:46 | CT ---
EXAMINATION TYPE: CT abdomen pelvis wo con DATE OF EXAM: 08/03/2021 HISTORY: Left flank pain. CT DLP: 743 mGycm. Automated Exposure Control for Dose Reduction was Utilized. TECHNIQUE: CT scan of the abdomen and pelvis is performed without oral or IV contrast. COMPARISON: CT abdomen and pelvis August 15, 2019 FINDINGS: Within the limitations of a non-contrast study, the following observations are made. LUNG BASES: No significant abnormality is appreciated. LIVER/GB: No significant abnormality is appreciated. PANCREAS: No significant abnormality is seen. SPLEEN: No significant abnormality is seen. ADRENALS: No significant abnormality is seen. KIDNEYS: Stable 5 mm nonobstructing calculus left kidney upper pole level axial image 38. Stable part ially exophytic 2.8 cm thin-walled cyst medially upper pole of the right kidney axial image 39 and sl ightly larger partially exophytic thin-walled 3.2 cm cyst lower pole of the right kidney axial image 63. No hydronephrosis identified bilaterally. BOWEL: No suspicious small or large bowel dilatation. Stomach poorly distended and thus suboptimally evaluated. GENITAL ORGANS: Anteverted uterus redemonstrated. No suspicious adnexal masses. Few scattered tiny bi lateral pelvic phleboliths. LYMPH NODES: No greater than 1cm abdominal or pelvic lymph nodes are appreciated. OSSEOUS STRUCTURES: [id number] disc space narrowing L2-L3 level. Moderate disc space narrowin g left L4-L5 level. Multilevel facet arthropathy mid to lower lumbar spine. OTHER: No significant additional abnormality is seen. IMPRESSION: Stable 5 mm nonobstructing upper pole left renal calculus. No hydronephrosis or obstructi ng ureter calculi bilaterally. No suspicious new or Acute findings seen from most recent CT.
== END | disposition home or self-care (01) ==
LOC: RADCTMAIN 16:00
PROVIDERS: ATTEND Family Medicine
DX: N20.0 Calculus of kidney (principal); R91.8 Other nonspecific abnormal finding of lung field
CPT/HCPCS: 74176

== ENCOUNTER → 2021-11-30 | Outpatient (CLI) | payer MEDICARE ==
--- NOTE | 2021-11-30 19:17 | US ---
EXAMINATION TYPE: US kidneys/renal and bladder DATE OF EXAM: 11/30/2021 COMPARISON: 08/03/2021 CT CLINICAL HISTORY: 76-year-old female N18.31 CKD STAGE 3. TECHNIQUE: Multiple sonographic images of the kidneys and bladder are obtained. FINDINGS: EXAM MEASUREMENTS: Right Kidney: 11.3 x 5.7 x 5.3 cm Left Kidney: 12.5 x 6.2 x 5.0 cm Post Void Residual Volume: 5.1 mL Right Kidney: Cortical cysts measuring 1). 3.0 x 2.8 x 3.0 cm. 2). 2.5 x 3.0 x 2.4cm. No hydronephros is. Left Kidney: Shadowing echogenic foci upper pole measuring 0.6 x 0.8 x 0.6cm. No hydronephrosis. Bladder: wnl Bilateral Jets seen: Yes Normal Post Void Residual: Yes IMPRESSION: 1. No hydronephrosis. 2. A couple benign cortical cysts in the right kidney measuring up to 3.0 cm. 3. Nonobstructive 6 mm left renal calculus.
== END | disposition home or self-care (01) ==
LOC: RADUSWWP 11:02
PROVIDERS: ATTEND Internal Medicine Nephrology
DX: N20.0 Calculus of kidney (principal); N28.1 Cyst of kidney, acquired
CPT/HCPCS: 76770

== ENCOUNTER → 2022-01-20 | Outpatient (CLI) | payer MEDICARE ==
--- NOTE | 2022-01-20 16:19 | US ---
EXAMINATION TYPE: US pelvic complete DATE OF EXAM: 01/20/2022 COMPARISON: CT & US 2020 CLINICAL HISTORY: N83.209 UNSPECIFIED OVARIAN CYST, UNSPECIFIED SIDE. Follow up left ovarian cyst TECHNIQUE: . Transabdominal sonographic images of the pelvis were acquired. Transvaginal sonographi c images were medically necessary to better assess the following anatomy: uterus and ovaries Date of LMP: 15+ years ago EXAM MEASUREMENTS: Uterus: 6.4 x 2.9 x 4.1 cm Endometrial Stripe: 0.2 cm Right Ovary: not seen Left Ovary: 2.5 x 1.0 x 2.3 cm 1. Uterus: anteverted, heterogeneous 2. Endometrium: fluid within endo 3. Right Ovary: not seen due to overlying bowel gas 4. Left Ovary: 1.4 x 1.1 x 1.6cm cystic area 5. Bilateral Adnexa: wnl 6. Posterior cul-de-sac: wnl IMPRESSION: 1. Left ovarian cyst. Follow-up in 6 weeks following the next normal menstrual period can be performe d. 2. Some minimal fluid is within the endometrial canal. 3. Nonvisualization of the right ovary during this exam
== END | disposition home or self-care (01) ==
LOC: RADUSWWP 14:56
PROVIDERS: ATTEND Pharmacist
DX: N83.202 Unspecified ovarian cyst, left side (principal)
CPT/HCPCS: 76830; 76856

== ENCOUNTER → 2022-03-16 | Outpatient (CLI) | payer MEDICARE ==
--- NOTE | 2022-03-17 09:53 | MM ---
Reason for Exam: Screening (asymptomatic). Last mammogram was performed 1 year(s) and 5 month(s) ago. Patient History: Menarche at age 15. First Full-Term at age 30. Postmenopausal. Bilateral Cyst Aspiration. Risk Values: Yoko 5 year model risk: 2.0%. NCI Lifetime model risk: 4.5%. Prior Study Comparison: 07/12/2017 Screening Mammogram, [facility]. 07/18/2019 Screening Mammogram, [facility]. 10/29/2020 Bilateral Screening Mammogram, [facility]. Tissue Density: The breast tissue is heterogeneously dense. This may lower the sensitivity of mammography. Findings: Analyzed By CAD. 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 There are a few scattered benign-appearing round calcifications bilaterally redemonstrated. There is no suspicious group of microcalcifications or new suspicious mass in either breast. Overall Assessment: Benign, BI-RAD 2 Management: Screening Mammogram of both breasts in 1 year. Some advised bilateral ultrasound surveillance in patients with background dense tissue. Electronically signed and approved by: Jose Duncan M.D.
== END | disposition home or self-care (01) ==
LOC: RADMAMWWP 09:15
PROVIDERS: ATTEND Family Medicine
DX: Z12.31 Encounter for screening mammogram for malignant neoplasm of breast (principal); R92.1 Mammographic calcification found on diagnostic imaging of breast; Z78.0 Asymptomatic menopausal state
CPT/HCPCS: 77063; 77067

== ENCOUNTER → 2023-05-16 | Outpatient (CLI) | payer MEDICARE ==
--- NOTE | 2023-05-17 22:29 | MM ---
Reason for Exam: Screening (asymptomatic). Last mammogram was performed 1 year(s) and 2 month(s) ago. Patient History: Menarche at age 15. First Full-Term at age 30. Postmenopausal. Bilateral Cyst Aspiration. Risk Values: Yoko 5 year model risk: 2.0%. NCI Lifetime model risk: 4.2%. Prior Study Comparison: 07/18/2019 Screening Mammogram, [facility]. 10/29/2020 Bilateral Screening Mammogram, [facility]. 03/16/2022 Bilateral MG 3D screening mammo w/cad, [facility]. Tissue Density: The breast tissue is heterogeneously dense. This may lower the sensitivity of mammography. Findings: Analyzed By CAD. Possible increasing regional grouped calcifications lateral posterior left breast for which further magnification views are recommended. Unchanged global asymmetry centrally in the left breast. Otherwise, no significant change. Overall Assessment: Incomplete: need additional imaging evaluation, BI-RAD 0 Management: Special View Mammogram of the left breast. 2 include mag CC, mag ML, and 3-D ML views. [facility] will attempt to contact patient to return for supplemental views and ultrasound if indicated. Electronically signed and approved by: Leni Hall M.D. Radiologist
== END | disposition home or self-care (01) ==
LOC: RADMAMWWP 15:05
PROVIDERS: ATTEND Family Medicine
DX: Z12.31 Encounter for screening mammogram for malignant neoplasm of breast (principal); Z78.0 Asymptomatic menopausal state
CPT/HCPCS: 77063; 77067

== ENCOUNTER → 2023-05-19 | Outpatient (CLI) | payer MEDICARE ==
--- NOTE | 2023-05-19 12:04 | MM ---
Reason for Exam: Additional evaluation requested from abnormal screening. Last screening mammogram was performed less than 1 month ago. Patient History: Menarche at age 15. First Full-Term at age 30. Postmenopausal. Bilateral Cyst Aspiration. Risk Values: Yoko 5 year model risk: 2.0%. NCI Lifetime model risk: 4.2%. Prior Study Comparison: 03/10/2016 Bilateral Screening Mammogram, [facility]. 07/12/2017 Screening Mammogram, [facility]. 07/18/2019 Screening Mammogram, [facility] 10/29/2020 Bilateral Screening Mammogram, [facility]. 03/16/2022 Bilateral MG 3D screening mammo w/cad, [facility]. 05/16/2023 Bilateral MG 3D screening mammo w/cad, [facility]. Tissue Density: Left: The breast tissue is heterogeneously dense. This may lower the sensitivity of mammography. Findings: Analyzed By CAD. There are loosely dispersed calcification seen upper outer quadrant left breast without suspicious cluster identified this time. Overall Assessment: Benign, BI-RAD 2 Management: Screening Mammogram of both breasts in 1 year. . Results were given to the patient verbally at the time of exam. Patient should continue monthly self-breast exams. A clinical breast exam by your physician is recommended on an annual basis. This exam should not preclude additional follow-up of suspicious palpable abnormalities. Note on Yoko scores and lifetime risk: 1. A Yoko score greater than 3% is considered moderate risk. If this is the case, consider specialist referral to assess eligibility for a risk reducing agent. 2. If overall lifetime risk for the development of breast cancer is 20% or higher, the patient may qualify for future screening with alternating mammogram and breast MRI. Electronically signed and approved by: Jason Lr M.D. Radiologis
== END | disposition home or self-care (01) ==
LOC: RADMAMWWP 10:57
PROVIDERS: ATTEND Family Medicine
DX: R92.8 Other abnormal and inconclusive findings on diagnostic imaging of breast (principal); Z78.0 Asymptomatic menopausal state
CPT/HCPCS: 77065; G0279; 77061

== ENCOUNTER → 2023-07-11 | Outpatient (CLI) | payer MEDICARE ==
--- NOTE | 2023-07-11 14:44 | US ---
EXAMINATION TYPE: US carotid duplex BILAT DATE OF EXAM: 07/11/2023 COMPARISON: NONE CLINICAL INDICATION: Female, 77 years old with history of R09.89 SYM OF CIRCULATORY SYSTEM; stenosis TECHNIQUE: Carotid duplex ultrasound examination. Indirect Doppler criteria was utilized. 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 No suspicious ve locity elevation. Criteria for Assigning % of Stenosis / Diameter reduction (Estimation based on the indirect measurements of the internal carotid artery velocities (ICA PSV). 1. Normal (no stenosis)=ICA PSV < 125 cm/s: ratio < 2.0: ICA EDV<40 cm/s. 2. Less than 50% stenosis=ICA PSV < 125 cm/s: ratio < 2.0: ICA EDV<40 cm/s. 3. 50 to 69% stenosis=ICA PSV of 125 to 230 cm/s: ration 2.0 ? 4.0: ICA EDV 40-100 cm/s. 4. Greater than 70% stenosis to near occlusion= ICA PSV > 230 cm/s: ratio > 4.0: ICA EDV > 100 cm/s. 5. Near occlusion= ICA PSV velocities may be low or undetectable: variable ratio and ICA EDV. 6. Total occlusion=unable to detect flow.
== END | disposition home or self-care (01) ==
LOC: RADUSWWP 11:49
PROVIDERS: ATTEND Family Medicine
DX: R09.89 Other specified symptoms and signs involving the circulatory and respiratory systems (principal)
CPT/HCPCS: 93880

== ENCOUNTER → 2024-02-08 | Outpatient (CLI) | payer MEDICARE ==
[2024-02-08 18:01] LABS: African American GFR (CKD) 32 (>60 ml/min/1.73 sqM); Blood Urea Nitrogen 37 mg/dL (7-17); Non-African American GFR(CKD) 28 (>60 ml/min/1.73 sqM)
--- NOTE | 2024-02-08 18:54 | CT ---
EXAMINATION TYPE: CT abdomen pelvis wo con CT DLP: 622.5 mGycm, Automated exposure control for dose reduction was used. DATE OF EXAM: 02/08/2024 6:37 PM COMPARISON: 08/03/2021 CLINICAL INDICATION:Female, 78 years old with history of R10.32 LEFT LOWER QUADRANT PAIN; LLQ pain x2 days. TECHNIQUE: Axial CT abdomen pelvis wo con;Sagittal and coronal reformats were created on a separate workstation. Contrast used: mL of , (none if empty) Oral contrast used: with Oral Contrast (none if empty) FINDINGS: LOWER CHEST: Unremarkable ABDOMEN LIVER: Unremarkable GALLBLADDER AND BILE DUCTS: Unremarkable. PANCREAS: Unremarkable. SPLEEN: Unremarkable. ADRENAL GLANDS: Unremarkable. KIDNEYS AND URETERS: Mild right hydronephrosis secondary obstructing 6 mm calculus at the abdominal p elvic junction. Smaller calculus seen immediately behind this calculus measuring 3 mm. No right renal calculi. No right hydronephrosis. Renal cortical probable cyst in the right. PELVIS BLADDER: Unremarkable REPRODUCTIVE: Unremarkable. ABDOMEN & PELVIS STOMACH AND BOWEL: No evidence of bowel obstruction. PERITONEUM/RETROPERITONEUM: No evidence of pneumoperitoneum or free fluid. VASCULATURE: No evidence of aortic aneurysm. MUSCULOSKELETAL: No acute osseous abnormalities LYMPH NODES: No gross evidence for lymphadenopathy. SOFT TISSUE/ABDOMINAL WALL: Fat-containing umbilical hernia. IMPRESSION: Mild right hydronephrosis secondary obstructing 6 mm calculus at the ureteropelvic junction. Tiny 3 m m calculus also immediately next to this calculus. No right renal calculi. No right hydronephrosis.
== END | disposition home or self-care (01) ==
LOC: RADCTMAIN 16:32
PROVIDERS: ATTEND Family Medicine
DX: N13.2 Hydronephrosis with renal and ureteral calculous obstruction (principal); N18.31 Chronic kidney disease, stage 3a
CPT/HCPCS: 36415; 74176; 82565; 84520

== ENCOUNTER 2024-02-09 09:59 | Observation (INO) | payer MEDICARE ==
--- NOTE | 2024-02-09 10:22 | ED ---
Abdominal Pain HPI - General Chief Complaint: Abdominal Pain Stated Complaint: Pain managment Time Seen by Provider: 02/09/24 10:17 Source: patient, RN notes reviewed Mode of arrival: ambulatory - History of Present Illness Initial Comments: 78-year-old female presented to the ER with a chief complaint of left flank pain. Patient reports pain started approximately 2 days ago and has been persistent. She reports laying flat at night mildly improves her pain. She en dorses associated nausea and vomiting. She was seen yesterday by outpatient clinic and had laboratory studies obtained. She was found to have stage III kidney disease. CT was also obtained showing a 6 mm calculus in the left UPJ with a 3 mm calculus immediately next to this calculus. No right renal calculus or right-sided hydronephrosis. She was not sent home on any medications. She reports that she received a phone call from her physician telling her to report to the ER for pain management. Patient denies any fevers or chills. Denies any dysuria or hematuria, chest pain, shortness of breath or peripheral edema. - Related Data Home Medications Medication Instructions Recorded Confirmed Folic Acid 1 mg PO DAILY 08/20/19 02/09/24 Pregabalin [Lyrica] 150 mg PO BID 08/20/19 02/09/24 metHOTREXate sodium [Methotrexate] 20 mg PO LORENZO 08/20/19 02/09/24 Allergies Allergy/AdvReac Type Severity Reaction Status Date / Time codeine AdvReac Nausea & Verified 02/09/24 11:54 Vomiting hydrocodone [From [place]] AdvReac Nausea & Verified 02/09/24 11:54 Vomiting Review of Systems ROS Statement: Those systems with pertinent positive or pertinent negative responses have been documented in the HPI. ROS Other: All systems not noted in ROS Statement are negative. Past Medical History Past Medical History: Fibromyalgia, Rheumatoid Arthritis (RA) Additional Past Medical History / Comment(s): deep brain stimulator for essential tremors, kidney stone History of Any Multi-Drug Resistant Organisms: None Reported Additional Past Surgical History / Comment(s): DBS (deep brain stimulator) implantation, adarsh cataracts Past Anesthesia/Blood Transfusion Reactions: No Reported Reaction Past Psychological History: No Psychological Hx Reported Past Alcohol Use History: None Reported Past Drug Use History: None Reported - Past Family History Mother Family Medical History: No Reported History General Exam General appearance: alert, in no apparent distress Respiratory exam: Present: normal lung sounds bilaterally. Absent: respiratory distress, wheezes, rales, rhonchi, stridor Cardiovascular Exam: Present: regular rate, normal rhythm, normal heart sounds. Absent: systolic murmur, diastolic murmur, rubs, gallop, clicks GI/Abdominal exam: Present: soft, tenderness (Left lower quadrant), normal bowel sounds. Absent: distended, guarding, rebound, rigid Back exam: Present: normal inspection, CVA tenderness (L) Neurological exam: Present: alert, oriented X3, CN II-XII intact Skin exam: Present: warm, dry, intact, normal color. Absent: rash Course Vital Signs 02/09/24 02/09/24 10:00 12:00 Temperature 98.2 F Pulse Rate 63 59 L Respiratory 16 16 Rate Blood Pressure 164/72 194/86 O2 Sat by Pulse 96 98 Oximetry - Reevaluation(s) Reevaluation #1: 02/09/24 13:[address] Nazario who advised on admission to medicine with urology on consult. 02/09/24 13:39 Case discussed with brianne Luna, who accepts medical admission. Medical Decision Making - Medical Decision Making Was pt. sent in by a medical professional or institution (, PA, ACCOUNTS RECEIVABLE SUPERVISOR, urgent care, hospital, or [facility]...) When possible be specific @ -Patient sent here by Dr. Peterson for evaluation of nephrolithiasis. Did you speak to anyone other than the patient for history (EMS, parent, family, police, friend...)? What history was obtained from this source @ -No Did you review nursing and triage notes (agree or disagree)? Why? @ -I reviewed and agree with nursing and triage notes Were old charts reviewed (outside hosp., previous admission, EMS record, old EKG, old radiological studies, urgent care reports/EKG's, [facility] records)? Report findings @ -I reviewed laboratory studies and CT report and image from 02-08-2024. CT abdomen pelvis significant for a left sided hydronephrosis secondary to obstructing 6 mm calculus at the UPJ with a 3 mm calculus adjacent. No right renal calculi or right-sided hydronephrosis. Laboratory studies significant for a BARB (BUN 37, creatinine 1.76) eGFR 28. Differential Diagnosis (chest pain, altered mental status, abdominal pain women, abdominal pain men, vaginal bleeding, weakness, fever, dyspnea, syncope, headache, dizziness, GI bleed, back pain, seizure, CVA, palpatations, mental health, musculoskeletal)? @ -Differential Back Pain: Strain, zoster, cauda equina syndrome, epidural abscess, vertebral osteomyelitis, discitis, fracture, subluxation, disc herniation, DJD, spinal stenosis, dissection, AAA, pancreatitis, peptic ulcer disease, pyelonephritis, kidney stone, this is not meant to be an all-inclusive list. EKG interpreted by me (3pts min.). @ -None X-rays interpreted by me (1pt min.). @ -None done CT interpreted by me (1pt min.). @ -None done U/S interpreted by me (1pt. min.). @ -None done What testing was considered but not performed or refused? (CT, X-rays, U/S, labs)? Why? @ -None What meds were considered but not given or refused? Why? @ -None Did you discuss the management of the patient with other professionals (professionals i.e. , PA, ACCOUNTS RECEIVABLE SUPERVISOR, lab, RT, psych nurse, director social service, guard manager, teacher, pharmaceutical officer, housing case manager)? Give summary @ -Yes, case discussed with Dr. Nazario, supervisor metal furniture fabrication urology, who advised on admission to medicine with urology on consult. Case also discussed with Brianne Luna, who accepts medical admission. Was smoking cessation discussed for >3mins.? @ -No Was critical care preformed (if so, how long)? @ -No Were there social determinants of health that impacted care today? How? (Homelessness, low income, unemployed, alcoholism, drug addiction, transportation, low edu. Level, literacy, decrease access to med. care, nursing home, rehab)? @ -No Was there de-escalation of care discussed even if they declined (Discuss DNR or withdrawal of care, Hospice)? DNR status @ -No What co-morbidities impacted this encounter? (DM, HTN, Smoking, COPD, CAD, Cancer, CVA, ARF, Chemo, Hep., AIDS, mental health diagnosis, sleep apnea, morbid obesity)? @ -CKD Was patient admitted / discharged? Hospital course, mention meds given and route, prescriptions, significant lab abnormalities, going to OR and other pertinent info. @ -Admitted. 78 year old female presenting to the ER with a chief complaint of left flank pain. Patient seen in outpatient clinic yesterday and had CT abdomen pelvis performed. CT significant for left-sided hydronephrosis secondary to obstructing 6 mm calculus at the UPJ with a 3 mm calculus adjacent. Patient also found to have CKD with EGFR 28, BUN 37, creatinine 1.76. History and physical exam completed. Vitals significant for temperature 98.2, pulse 63, respiratory 16, blood pressure 164/72, oxygen saturation 96% on room air. Patient no signs of acute distress and nontoxic-appearing. Left CVA tenderness with radiation to left lower quadrant. Normal bowel sounds. Laboratory studies obtained remarkable for white blood cell count 8.3, lactic 0.8. BARB (BUN 35, creatinine 2.10) with an estimated GFR 22. Urinalysis significant for large blood and leukocyte esterases with 10 white blood cells. Results discussed with patient, all questions answered. Admission considered for hydronephrosis due to obstructing calculus and urology consult. Case discussed with Dr. Nazario, on- call urologist, who advises on admission to medicine with urology on consult. Case also discussed with brianne Luna, who accepts medical admission. Urology on consult. Patient agreeable for admission. Patient admitted in stable condition. Case discussed with ED attending, Dr. Franco. Undiagnosed new problem with uncertain prognosis? @ -No Drug Therapy requiring intensive monitoring for toxicity (Heparin, Nitro, Insulin, Cardizem)? @ -No Were any procedures done? @ -No Diagnosis/symptom? @ -Hydronephrosis due to obstructing calculus/BARB Acute, or Chronic, or Acute on Chronic? @ -Acute Uncomplicated (without systemic symptoms) or Complicated (systemic symptoms)? @ -Complicated Side effects of treatment? @ -No Exacerbation, Progression, or Severe Exacerbation? @ -No Poses a threat to life or bodily function? How? (Chest pain, [place], [place], pneumonia, PE, COPD, DKA, ARF, appy, cholecystitis, CVA, Diverticulitis, Homicidal, Suicidal, threat to staff... and all critical care pts) @ -Low likelihood - Lab Data Result diagrams: 02/09/24 11:05 02/09/24 11:05 Lab Results 02/09/24 02/09/24 02/09/24 Range/Units 11:05 11:05 11:05 WBC 8.3 (3.8-10.6) k/uL RBC 4.78 (3.80-5.40) m/uL Hgb 13.7 (11.4-16.0) gm/dL Hct 43.3 (34.0-46.0) % MCV 90.5 (80.0-100.0) fL MCH 28.6 (25.0-35.0) pg MCHC 31.6 (31.0-37.0) g/dL RDW 13.5 (11.5-15.5) % Plt Count 177 (150-450) k/uL MPV 8.5 Neutrophils % 79 % Lymphocytes % 13 % Monocytes % 5 % Eosinophils % 1 % Basophils % 1 % Neutrophils # 6.5 (1.3-7.7) k/uL Lymphocytes # 1.1 (1.0-4.8) k/uL Monocytes # 0.4 (0-1.0) k/uL Eosinophils # 0.1 (0-0.7) k/uL Basophils # 0.1 (0-0.2) k/uL Sodium 139 (137-145) mmol/L Potassium 4.5 (3.5-5.1) mmol/L Chloride 108 H (98-107) mmol/L Carbon Dioxide 25 (22-30) mmol/L Anion Gap 6 mmol/L BUN 35 H (7-17) mg/dL Creatinine 2.10 H (0.52-1.04) mg/dL Est GFR (CKD-EPI)AfAm 26 (>60 ml/min/1.73 sqM) Est GFR (CKD-EPI)NonAf 22 (>60 ml/min/1.73 sqM) Glucose 87 (74-99) mg/dL Plasma Lactic Acid Garry (0.7-2.0) mmol/L Calcium 9.0 (8.4-10.2) mg/dL Total Bilirubin 1.2 (0.2-1.3) mg/dL AST 30 (14-36) U/L ALT 25 (4-34) U/L Alkaline Phosphatase 124 (38-126) U/L Total Protein 7.0 (6.3-8.2) g/dL Albumin 4.4 (3.5-5.0) g/dL Urine Color Light Yellow Urine Appearance Clear (Clear) Urine pH 6.0 (5.0-8.0) Ur Specific [place] 1.021 (1.001-1.035) Urine Protein Trace H (Negative) Urine Glucose (UA) Negative (Negative) Urine Ketones Negative (Negative) Urine Blood Large H (Negative) Urine Nitrite Negative (Negative) Urine Bilirubin Negative (Negative) Urine Urobilinogen <2.0 (<2.0) mg/dL Ur Leukocyte Esterase Large H (Negative) Urine RBC >182 H (0-5) /hpf Urine WBC 10 H (0-5) /hpf Ur Squamous Epith Cells 1 (0-4) /hpf Hyaline Casts 1 (0-2) /lpf Urine Mucus Few H (None) /hpf 02/09/24 Range/Units 11:05 WBC (3.8-10.6) k/uL RBC (3.80-5.40) m/uL Hgb (11.4-16.0) gm/dL Hct (34.0-46.0) % MCV (80.0-100.0) fL MCH (25.0-35.0) pg MCHC (31.0-37.0) g/dL RDW (11.5-15.5) % Plt Count (150-450) k/uL MPV Neutrophils % % Lymphocytes % % Monocytes % % Eosinophils % % Basophils % % Neutrophils # (1.3-7.7) k/uL Lymphocytes # (1.0-4.8) k/uL Monocytes # (0-1.0) k/uL Eosinophils # (0-0.7) k/uL Basophils # (0-0.2) k/uL Sodium (137-145) mmol/L Potassium (3.5-5.1) mmol/L Chloride (98-107) mmol/L Carbon Dioxide (22-30) mmol/L Anion Gap mmol/L BUN (7-17) mg/dL Creatinine (0.52-1.04) mg/dL Est GFR (CKD-EPI)AfAm (>60 ml/min/1.73 sqM) Est GFR (CKD-EPI)NonAf (>60 ml/min/1.73 sqM) Glucose (74-99) mg/dL Plasma Lactic Acid Garry 0.8 (0.7-2.0) mmol/L Calcium (8.4-10.2) mg/dL Total Bilirubin (0.2-1.3) mg/dL AST (14-36) U/L ALT (4-34) U/L Alkaline Phosphatase (38-126) U/L Total Protein (6.3-8.2) g/dL Albumin (3.5-5.0) g/dL Urine Color Urine Appearance (Clear) Urine pH (5.0-8.0) Ur Specific [place] (1.001-1.035) Urine Protein (Negative) Urine Glucose (UA) (Negative) Urine Ketones (Negative) Urine Blood (Negative) Urine Nitrite (Negative) Urine Bilirubin (Negative) Urine Urobilinogen (<2.0) mg/dL Ur Leukocyte Esterase (Negative) Urine RBC (0-5) /hpf Urine WBC (0-5) /hpf Ur Squamous Epith Cells (0-4) /hpf Hyaline Casts (0-2) /lpf Urine Mucus (None) /hpf - Radiology Data Radiology results: report reviewed (02/08/24), image reviewed (02/08/24) Disposition Clinical Impression: Chronic kidney disease (CKD), Hydronephrosis concurrent with and due to calculi of kidney and ureter Disposition: ADMITTED IP TO THIS HOSP Condition: Good Referrals: Bryce Peterson MD [Primary Care Provider] - 1-2 days Time of Disposition: 13:40
[2024-02-09] MEDS: ONDANSETRON 4 MG/2 ML VIAL IVP STA (10:55)
[2024-02-09] MEDS: ACETAMINOPHEN TAB 325 MG TAB PO STA (10:56)
[2024-02-09] MEDS: SODIUM CHLORIDE 0.9% 500 ML 500 ML IV STA (11:05)
[2024-02-09 11:27] LABS: Appearance,Urine Clear (Clear); Bilirubin,Urine Negative (Negative); Blood,Urine Large (Negative); Color,Urine Light Yellow; Glucose,Urine (UA) Negative (Negative); Hyaline Casts,Urine 1 /lpf (0-2); Ketones,Urine Negative (Negative); Leukocyte Esterase,Urine Large (Negative); Mucus,Urine Few /hpf; Nitrite,Urine Negative (Negative); Protein,Urine Trace (Negative); RBC,Urine >182 /hpf (0-5); Specific Gravity,Urine 1.021 (1.001-1.035); Squamous Epithelial Cell,Urine 1 /hpf (0-4); Urobilinogen,Urine <2.0 mg/dL (<2.0); WBC,Urine 10 /hpf (0-5)
[2024-02-09 11:38] LABS: Basophils # (A) 0.1 k/uL (0-0.2); Basophils % (A) 1 %; Eosinophils # (A) 0.1 k/uL (0-0.7); Eosinophils % (A) 1 %; HCT 43.3 % (34.0-46.0); HGB 13.7 gm/dL (11.4-16.0); Lymphocytes # (A) 1.1 k/uL (1.0-4.8); Lymphocytes % (A) 13 %; MCH 28.6 pg (25.0-35.0); MCHC 31.6 g/dL (31.0-37.0); MCV 90.5 fL (80.0-100.0); Mean Platelet Volume 8.5; Monocytes # (A) 0.4 k/uL (0-1.0); Monocytes % (A) 5 %; Neutrophils # (A) 6.5 k/uL (1.3-7.7); Neutrophils % (A) 79 %; Platelet Count 177 k/uL (150-450); RBC 4.78 m/uL (3.80-5.40); RDW 13.5 % (11.5-15.5); WBC 8.3 k/uL (3.8-10.6)
[2024-02-09 11:46] LABS: ALT 25 U/L (4-34); AST 30 U/L (14-36); African American GFR (CKD) 26 (>60 ml/min/1.73 sqM); Albumin 4.4 g/dL (3.5-5.0); Alkaline Phosphatase 124 U/L (38-126); Anion Gap 6 mmol/L; Blood Urea Nitrogen 35 mg/dL (7-17); Carbon Dioxide 25 mmol/L (22-30); Chloride 108 mmol/L (98-107); Glucose 87 mg/dL (74-99); Non-African American GFR(CKD) 22 (>60 ml/min/1.73 sqM); Potassium 4.5 mmol/L (3.5-5.1); Sodium 139 mmol/L (137-145); Total Bilirubin 1.2 mg/dL (0.2-1.3)
[2024-02-09] MEDS ORDERED: NALOXONE 0.4 MG/ML 1 ML VIAL IV PRN (13:28)
[2024-02-09] MEDS ORDERED: ONDANSETRON 4 MG/2 ML VIAL IVP PRN (13:28)
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
[2024-02-09] MEDS ORDERED: HYDROmorphone 0.5 MG/0.5 ML SYRINGE IVP PRN (14:13)
[2024-02-09] MEDS: SODIUM CHLORIDE 0.9% 1,000 ML IV SCH (14:30)
[2024-02-09] MEDS ORDERED: DEXTROSE 50% SYRINGE 50 ML IVP PRN ×2 (17:43)
[2024-02-09] MEDS ORDERED: LIDOCAINE 1% INJ 10MG/ML (20 ML MDV) ONE (18:30)
[2024-02-09] MEDS ORDERED: MIDAZOLAM 2 MG/2 ML VIAL ONE (18:30)
[2024-02-09] MEDS ORDERED: PROPOFOL 10 MG/ML 20 ML VIAL IV ONE (18:30)
[2024-02-09] MEDS ORDERED: fentaNYL (PF) 50 MCG/ML 2 ML AMP ONE (18:30)
--- NOTE | 2024-02-09 18:30 | P.GSCN ---
History of Present Illness Consult date: 02/09/24 Reason for Consult: Left ureteral stone History of present illness: This is a 78-year-old female presented to the hospital with a second emergency room to presentation for intractable pain secondary to the left ureteral stone. She underwent a CT abdomen pelvis that showed evidence of left 6 mm left-sided proximal stone with hydronephrosis. Indicates pain associated with nausea but denies any vomiting. No previous history of kidney stones. Denies any dysuria or gross hematuria. Her creatinine is elevated at 2.1, of note her creatinine was 1.7 on presentation to the ED on yesterday, last creatinine in the system was 1.1 in 2020. Urine analysis was positive for large leukocytes and blood. Denies any fevers or chills Review of Systems - Constitutional Denies fever, Denies weight loss - Cardiovascular Denies chest pain, Denies shortness of breath - Respiratory Denies cough, Denies 7 - Gastrointestinal Reports abdominal pain, Reports nausea, Denies vomiting - Genitourinary Genitourinary: Reports flank pain, Denies dysuria, Denies hematuria - Integumentary Denies rash, Denies unusual bruising - Neurological Denies headaches, Denies syncope Past Medical History Past Medical History: Fibromyalgia, Rheumatoid Arthritis (RA) Additional Past Medical History / Comment(s): deep brain stimulator for essential tremors, kidney stone History of Any Multi-Drug Resistant Organisms: None Reported Additional Past Surgical History / Comment(s): DBS (deep brain stimulator) implantation, adarsh cataracts Past Anesthesia/Blood Transfusion Reactions: No Reported Reaction Past Psychological History: No Psychological Hx Reported Past Alcohol Use History: None Reported Past Drug Use History: None Reported - Past Family History Mother Family Medical History: No Reported History Medications and Allergies Home Medications Medication Instructions Recorded Confirmed Type Folic Acid 1 mg PO DAILY 08/20/19 02/09/24 History Pregabalin [Lyrica] 150 mg PO BID 08/20/19 02/09/24 History metHOTREXate sodium [Methotrexate] 20 mg PO LORENZO 08/20/19 02/09/24 History Allergies Allergy/AdvReac Type Severity Reaction Status Date / Time codeine AdvReac Nausea & Verified 02/09/24 11:54 Vomiting hydrocodone [From [place]] AdvReac Nausea & Verified 02/09/24 11:54 Vomiting Surgical - Exam Vital Signs Temp Pulse Resp BP Pulse Ox 98.2 F 63 16 164/72 96 02/09/24 10:00 02/09/24 10:00 02/09/24 10:00 02/09/24 10:00 02/09/24 10:00 - General no distress, moderate pain - Eyes normal ocular movement, no pale - ENT normal nares, normal mucosa - Respiratory normal expansion, normal respiratory effort - Abdomen Abdomen: soft, non tender - Psychiatric oriented to time, oriented to person, oriented to place Results - Labs 02/09/24 11:05 02/09/24 11:05 Abnormal Lab Results - Last 24 Hours (Table) 02/09/24 02/09/24 Range/Units 11:05 11:05 Chloride 108 H (98-107) mmol/L BUN 35 H (7-17) mg/dL Creatinine 2.10 H (0.52-1.04) mg/dL Urine Protein Trace H (Negative) Urine Blood Large H (Negative) Ur Leukocyte Esterase Large H (Negative) Urine RBC >182 H (0-5) /hpf Urine WBC 10 H (0-5) /hpf Urine Mucus Few H (None) /hpf Diabetes panel 02/09/24 Range/Units 11:05 Sodium 139 (137-145) mmol/L Potassium 4.5 (3.5-5.1) mmol/L Chloride 108 H (98-107) mmol/L Carbon Dioxide 25 (22-30) mmol/L BUN 35 H (7-17) mg/dL Creatinine 2.10 H (0.52-1.04) mg/dL Glucose 87 (74-99) mg/dL Calcium 9.0 (8.4-10.2) mg/dL AST 30 (14-36) U/L ALT 25 (4-34) U/L Alkaline Phosphatase 124 (38-126) U/L Total Protein 7.0 (6.3-8.2) g/dL Albumin 4.4 (3.5-5.0) g/dL Calcium panel 02/09/24 Range/Units 11:05 Calcium 9.0 (8.4-10.2) mg/dL Albumin 4.4 (3.5-5.0) g/dL Pituitary panel 02/09/24 Range/Units 11:05 Sodium 139 (137-145) mmol/L Potassium 4.5 (3.5-5.1) mmol/L Chloride 108 H (98-107) mmol/L Carbon Dioxide 25 (22-30) mmol/L BUN 35 H (7-17) mg/dL Creatinine 2.10 H (0.52-1.04) mg/dL Glucose 87 (74-99) mg/dL Calcium 9.0 (8.4-10.2) mg/dL Adrenal panel 02/09/24 Range/Units 11:05 Sodium 139 (137-145) mmol/L Potassium 4.5 (3.5-5.1) mmol/L Chloride 108 H (98-107) mmol/L Carbon Dioxide 25 (22-30) mmol/L BUN 35 H (7-17) mg/dL Creatinine 2.10 H (0.52-1.04) mg/dL Glucose 87 (74-99) mg/dL Calcium 9.0 (8.4-10.2) mg/dL Total Bilirubin 1.2 (0.2-1.3) mg/dL AST 30 (14-36) U/L ALT 25 (4-34) U/L Alkaline Phosphatase 124 (38-126) U/L Total Protein 7.0 (6.3-8.2) g/dL Albumin 4.4 (3.5-5.0) g/dL Assessment and Plan Assessment: 78-year-old female with a 6 mm left-sided proximal stone and acute kidney injury and positive UA. Discussed with her given the obstructing stone and her acute kidney injury and her symptoms I do present recommend proceeding with stent insertion. Given the possibility of UTI will not be able to proceed with ureteroscopy and holmium laser of this at this time discussed stent will allow decompression of the collecting system, but she will eventually require left- sided ureteroscopy with holmium laser and stent removal as an outpatient. Risk benefit and rationale of surgery was discussed in detail -Keep n.p.o., she can have a diet after her procedure -OR for left-sided stent insertion
[2024-02-09] MEDS: LACTATED RINGERS 1,000 ML IV ONE (18:33)
[2024-02-09] MEDS: SODIUM CHLORIDE 0.9% 100 ML with ceFAZolin 2,000 MG IV ONE (18:51)
--- NOTE | 2024-02-09 18:57 | P.OP ---
Date of Procedure: 02/09/24 Preoperative Diagnosis: Left ureteral stone Postoperative Diagnosis: Same Procedure(s) Performed: Cystoscopy and left stent insertion Implants: 6 [place]or[place] by 26 cm stent to the left ureter Anesthesia: MAC Pathology: none sent Condition: stable Disposition: PACU Indications for Procedure: 78-year-old female with a 6 mm left-sided proximal stone and acute kidney injury and positive UA. Discussed with her given the obstructing stone and her acute kidney injury and her symptoms I do present recommend proceeding with stent insertion. Given the possibility of UTI will not be able to proceed with ureteroscopy and holmium laser of this at this time discussed stent will allow decompression of the collecting system, but she will eventually require left- sided ureteroscopy with holmium laser and stent removal as an outpatient. Risk benefit and rationale of surgery was discussed in detail Description of Procedure: Patient brought to the operating room, sedation was induced. She was prepped and draped in sterile fashion placed in the dorsolithotomy position. Cystoscopy fitted with a 22 Andorran sheath was inserted per urethra, cystoscopy was performed showed no abnormality within the bladder. Attention was then carried to the left ureteral orifice which was intubated with a sensor wire. Next under fluoroscopy a 6 Andorran by 26 cm stent was passed over the wire, the proximal curl was visualized on fluoroscopy and the distal curl was visualized using the cystoscope, hydronephrotic drip was seen from the stent. Patient tolerated procedure well was taken to recovery in stable condition
[2024-02-09] MEDS: PREGABALIN 75 MG CAP PO SCH (20:48)
[2024-02-09] MEDS: ACETAMINOPHEN TAB 325 MG TAB PO PRN (21:29)
[2024-02-09] MEDS: hydrALAZINE HCL 25 MG TAB PO STA (21:58)
[2024-02-09] MEDS: HEPARIN SODIUM,PORCINE 5,000 UNIT/ML 1 ML VIAL SQ SCH (23:52)
[2024-02-10 00:28] LABS: Glucose,Whole Blood 134 mg/dL (70-110)
[2024-02-10 06:29] LABS: Glucose,Whole Blood 86 mg/dL (70-110)
--- NOTE | 2024-02-10 07:01 | FL ---
EXAMINATION TYPE: FL guidance operating room DATE OF EXAM: 02/09/2024 CLINICAL HISTORY: Left kidney stone TECHNIQUE: Fluoroscopy. COMPARISON: CT abdomen and pelvis one day earlier. FINDINGS: Fluoroscopic guidance was provided during left ureter stent insertion procedure performed by Dr. France. A total of 2 seconds of fluoroscopic time was utilized during the procedure and 1 spo t images was acquired. Total dose area product (DAP) in uGy*m?, mGy*cm? (or similar: 0.1464. IMPRESSION: As Above.
[2024-02-10 07:34] VITALS: RESP 17; TEMP 98
[2024-02-10] MEDS: FOLIC ACID 1 MG TAB PO SCH (08:30)
[2024-02-10 10:58] LABS: Glucose,Whole Blood 85 mg/dL (70-110)
[2024-02-10 11:09] LABS: HCT 38.6 % (37.2-46.3); HGB 12.2 g/dL (12.0-15.0); MCH 29.5 pg (27.0-32.0); MCHC 31.6 g/dL (32.0-37.0); MCV 93.2 FL (80.0-97.0); Mean Platelet Volume 11.2 FL (9.5-12.2); NRBC Per 100 WBC 0 X 10*3/uL (0.00-0.01); Platelet Count 153 X 10*3/uL (140-440); RBC 4.14 X 10*6/uL (4.10-5.20); RDW 13.2 % (11.5-14.5); WBC 5.45 X 10*3/uL (4.50-10.00)
[2024-02-10 13:51] VITALS: BP 150/80; PULSE 78
[2024-02-10 14:44] LABS: African American GFR (CKD) 64 (>60 ml/min/1.73 sqM); Anion Gap 3 mmol/L; Blood Urea Nitrogen 20 mg/dL (7-17); Calcium 8.5 mg/dL (8.4-10.2); Carbon Dioxide 26 mmol/L (22-30); Chloride 110 mmol/L (98-107); Glucose 97 mg/dL (74-99); Non-African American GFR(CKD) 55 (>60 ml/min/1.73 sqM); Potassium 4.5 mmol/L (3.5-5.1); Sodium 139 mmol/L (137-145)
--- NOTE | 2024-02-10 15:56 | P.DS ---
Providers Date of admission: 02/09/24 14:23 Expected date of discharge: 02/10/24 Attending physician: Arnie Qiu MD Consults: 02/09/24 13:28 Consult Physician Urgent Consulting Provider: Roger Nazario Consult Reason/Comments: nephrolithiasis Do you want consulting provider notified?: Already Contacted Primary care physician: Bryce Peterson Hospital Course: Discharge Diagnosis: Obstructing left ureteral calculus with left-sided hydronephrosis. Patient evaluated by urology and underwent cystoscopy with left ureter stent placement. Acute kidney injury, secondary to above. Resolved Rheumatoid arthritis Fibromyalgia Essential tremor status post deep brain stimulator Hospital Course: Patient is a very pleasant 78-year-old female with a past medical history of rheumatoid arthritis on methotrexate, fibromyalgia, and tremors with a deep brain stimulator in place. She presented to the emergency department with a chief complaint of left lower flank pain. Patient reports this pain began approximately 2 days ago and initially waxed and waned but became persistent and sharp accompanied by episodes of nausea and vomiting so she went to her PCPs office for evaluation. Patient states she underwent some lab work and a CT and received a phone call from her primary care doctor's office stating her renal function was elevated and the CT revealed a kidney stone so she needed to go to the emergency department for further evaluation. Patient denies having any fevers, chills, diaphoresis, chest pain, palpitations, shortness of breath, changes and or difficulties with urination, or any other complaints. Upon arrival to our facility, patient underwent evaluation in the emergency department. Vital signs upon arrival show blood pressure 164/72, heart rate 63, respiratory rate 16, temp 98.2 F, and SpO2 of 96% on room air. Labs were completed and reviewed. CBC was unremarkable with WBC count of 8.3, hemoglobin of 13.7, and platelet count of 177. BMP showing hyperchloremia and further elevation of renal function with BUN of 35, creatinine 2.10, and GFR of 22. Lab work completed outpatient by PCP yesterday revealed creatinine of 1.76 with bas kimberlee creatinine of 1.2. CT scan completed outpatient on 02/08/2024 was reviewed showing mild left hydronephrosis secondary to obstructing 6 mm calculus at the abdominal pelvic junction with smaller calculus seen immediately behind this calculus measuring 3 mm, no right sided renal calculi and no right hydronephrosis with reports of right-sided renal cortical cyst. Urinalysis obtained in the ER showing trace protein, blood, and greater than 182 RBCs with 10 WBCs present. Patient was admitted under our services with consultation to urology. Patient received IV fluid hydration and was evaluated by urology and underwent cystoscopy with left ureter stent placement. She had resolution of her BARB with renal function improving from BUN of 35, creatinine 2.10, and GFR of 22 improving to BUN 20, creatinine 1.00, and GFR 55 on day 1 postop. Patient tolerating oral intake and reports full resolution of previous reported pain. Medically, patient is stable for discharge at this time. Recommend outpatient follow-up with PCP in 1 to 3 days and with urology in 1 to 2 weeks. Physical exam: Vital signs reviewed and stable. General: Nontoxic, no distress and appears stated age. Derm: Skin warm and dry, normal coloration for ethnicity. Head: Atraumatic, normocephalic and symmetric. Eyes: EOMs intact, no lid lag, and anicteric sclera Mouth: no lip lesions, mucus membranes moist Cardiovascular: regular rate and rhythm with normal S1S2, no murmur, positive posterior tibial pulses bilaterally, and cap refill < 2 seconds. Lungs: Respirations even, regular, and unlabored on room air. Lungs CTA bilaterally, no rhonchi, no rales, no wheezing, and no accessory muscle usage. Abdominal: soft, nontender to palpation, no guarding, no appreciable organomegaly Ext: ROM intact. No gross muscle atrophy, no edema, no contractures Neuro: Speech clear, face symmetrical and CN II-XII grossly intact with no noted focal neuro deficits Psych: Alert and oriented to person, place, time, and situation. Appropriate and pleasant affect. A total of 31 minutes of time were spent preparing this complex discharge summary. Pt was discharged on 02/10/2024 at 3:55 PM. Patient was seen independently by Nurse Practitioner. This document was prepared using [employer] dictation software. Please allow for errors in ear flap binder while rare they do occur. Jeremy Olivia NP rendered care for this patient independently, reviewed the findings and plan as documented in the note above. I did not physically speak with or examine the patient on this date. Patient Condition at Discharge: Stable Plan - Discharge Summary New Discharge Prescriptions: Continue Pregabalin [Lyrica] 150 mg PO BID Folic Acid 1 mg PO DAILY metHOTREXate sodium [Methotrexate] 20 mg PO LORENZO Discharge Medication List Folic Acid 1 mg PO DAILY 08/20/19 [History] Pregabalin [Lyrica] 150 mg PO BID 08/20/19 [History] metHOTREXate sodium [Methotrexate] 20 mg PO LORENZO 08/20/19 [History] Follow up Appointment(s)/Referral(s): Roger Nazario MD [STAFF PHYSICIAN] - 1 Week Bryce Peterson MD [Primary Care Provider] - 1-2 days Patient Instructions/Handouts: Ureteral Stent Placement (DC) Activity/Diet/Wound Care/Special Instructions: Activity: As tolerated. Take breaks as needed. Diet: Heart healthy and carb consistent diet. Avoid salts, or foods with hidden salts such as canned or boxed foods and frozen dinners. Extra salt makes your heart work harder and traps the fluid in your body for longer. Special Instructions: Take all of your medications as directed and remember to keep all of your doctor's appointments and follow-up as needed. Thank you for allowing us to participate in your care, it was truly a pleasure having you for our patient!!! . Discharge Disposition: HOME SELF-CARE
--- NOTE | 2024-02-10 16:04 | P.PN ---
Subjective Progress Note Date: 02/10/24 Underwent left-sided stent insertion yesterday, creatinine improved to 1 from 2.1 denies any flank pain, gross hematuria or dysuria Objective - Vital Signs Vital signs: Vital Signs Temp 98.0 F 02/10/24 13:50 Pulse 78 02/10/24 13:50 Resp 17 02/10/24 13:50 BP 150/80 02/10/24 13:50 Pulse Ox 97 02/10/24 13:50 FiO2 Intake & Output 02/09/24 02/10/24 02/10/24 18:59 06:59 18:59 Intake Total 600 50 300 Output Total 0 1550 Balance 600 -1500 300 Weight 82.554 kg 82.554 kg Intake: IV 600 50 Oral 300 Output: Urine 1550 Estimated Blood Loss 0 Other: Voiding Method Toilet # Voids 1 - Labs CBC & Chem 7: 02/10/24 06:17 02/10/24 14:22 Labs: Abnormal Lab Results - Last 24 Hours (Table) 02/10/24 02/10/24 02/10/24 Range/Units 00:26 06:17 14:22 MCHC 31.6 L (32.0-37.0) g/dL Chloride 110 H (98-107) mmol/L BUN 20 H (7-17) mg/dL POC Glucose (mg/dL) 134 H (70-110) mg/dL Assessment and Plan Assessment: 78-year-old female status post cystoscopy with left-sided stent insertion on February 04 for a 5 mm left ureteral stone, pain has resolved this morning, creatinine improved from 2.1 to 1. From urology standpoint she is stable for discharge, we will arrange outpatient left-sided ureteroscopy with holmium laser and stent removal
[2024-02-10 16:37] LABS: Blood Urea Nitrogen 19.8 mg/dL (9.0-27.0); Calcium 8.4 mg/dL (8.7-10.3); Carbon Dioxide 18.2 mmol/L (21.6-31.8); Chloride 109 mmol/L (96-109); Glucose 85 mg/dL (70-110); Potassium 4.6 mmol/L (3.5-5.5); Sodium 143 mmol/L (135-145)
[2024-02-12] MEDS ORDERED: metHOTREXate sodium 2.5 MG TAB PO SCH (09:00)
== END 2024-02-10 16:40 | disposition home or self-care (01) ==
LOC: EC 09:59 → UNDOADMOB 14:23 → INTOOBSV 14:23 → 4SSUR 14:23 → UNDODISIN 02-10 16:40
PROVIDERS: ADMIT Student in an Organized Health Care Education/Training Program; ATTEND Student in an Organized Health Care Education/Training Program
DX: N13.2 Hydronephrosis with renal and ureteral calculous obstruction (principal); N17.9 Acute kidney failure, unspecified; N18.30 Chronic kidney disease, stage 3 unspecified; M06.9 Rheumatoid arthritis, unspecified; M79.7 Fibromyalgia; G25.0 Essential tremor; Z79.899 Other long term (current) drug therapy; Z88.5 Allergy status to narcotic agent
CPT/HCPCS: 96361 ×2; 96372 ×2; 96374; 99285; 36415; 80053; 80048; 83605; 83735; 85025; 85027; 81001; 52332; G0378 ×2; C2625; C1769 ×3; J2250; J1644 ×2; J2405; J0690; J2001; J3010; J2704

== ENCOUNTER 2024-02-21 11:29 | Day surgery (SDC) | payer MEDICARE ==
--- NOTE | 2024-02-20 08:04 | P.HPIHPCON ---
History of Present Illness H&P Date: 02/20/24 Chief Complaint: Ureteral stone This is a 78-year-old female with a history of a 6 mm left-sided proximal ureteral stone, status post stent insertion on February 08. Presents today for left- sided ureteroscopy with holmium laser, aware the risk which includes but not limited to bleeding, infection, injury to the ureter Consent for Procedure: I have explained the operation/procedure to the patient, including the risks, benefits, side effects, alternative therapies (including not receiving the proposed treatment or service), the likelihood of the patient achieving his/her goals, and potential recuperation problems for the procedure/sedation/analgesia, as well as any blood products, if indicated. I also explained to the patient the risks, benefits and side effects of the alternatives, as well as the risks related to not receiving the proposed procedure, care, treatment, or services. Past Medical History Past Medical History: Fibromyalgia, Rheumatoid Arthritis (RA) Additional Past Medical History / Comment(s): deep brain stimulator for essential tremors, kidney stone History of Any Multi-Drug Resistant Organisms: None Reported Additional Past Surgical History / Comment(s): DBS (deep brain stimulator) implantation, adarsh cataracts Past Anesthesia/Blood Transfusion Reactions: No Reported Reaction Past Psychological History: No Psychological Hx Reported Past Alcohol Use History: None Reported Past Drug Use History: None Reported - Past Family History Mother Family Medical History: No Reported History Medications and Allergies Home Medications Medication Instructions Recorded Confirmed Type RX: Folic Acid 1 mg PO DAILY 08/20/19 02/09/24 History RX: Pregabalin [Lyrica] 150 mg PO BID 08/20/19 02/09/24 History RX: metHOTREXate sodium 20 mg PO LORENZO 08/20/19 02/09/24 History [Methotrexate] Allergies Allergy/AdvReac Type Severity Reaction Status Date / Time codeine AdvReac Nausea & Verified 02/09/24 11:54 Vomiting hydrocodone [From [place]] AdvReac Nausea & Verified 02/09/24 11:54 Vomiting Surgical - Exam - General no distress, moderate pain - Eyes normal ocular movement, no pale - ENT normal nares, normal mucosa - Respiratory normal expansion, normal respiratory effort - Abdomen Abdomen: soft, non tender Assessment and Plan Assessment: OR for left sided URS, holmium laser, stone basketting and stent removal
[~2024-02-21 11:29] MED LIST changes: -DEXAMETHASONE SOD PHOSPHATE 10 MG/ML 1 ML VIAL IV ONE; -LACTATED RINGERS 1,000 ML IV SCH; -LIDOCAINE 1% 20 ML VIAL (10MG/ML) FOR IV START INTRADERMA PRN; -MIDAZOLAM 2 MG/2 ML VIAL IV PRN; -ONDANSETRON 4 MG/2 ML VIAL IVP ONE; -SCOPOLAMINE 1.5MG/72HR PATCH TRANSDERM ONE; +fentaNYL (PF) 50 MCG/ML 2 ML AMP IV PRN
--- NOTE | 2024-02-21 12:01 | XR ---
EXAMINATION TYPE: XR KUB DATE OF EXAM: 02/21/2024 11:54 AM CLINICAL INDICATION:Female, 78 years old with history of cysto/litho/stone basketing/stent removal; P HH COMPARISON: 10/22/2018. TECHNIQUE: One radiographic view of the abdomen was obtained. FINDINGS: The bowel gas pattern is nonspecific without dilated loops of small or large bowel. There i s no evidence for organomegaly or pneumoperitoneum. The osseous structures are intact. No abnormal calcifications are present. Fecal material and gas are demonstrated throughout the colon and rectum. Left ureteral stent with pigtail catheter is in appropriate position. Gas limits evaluation for calcu li. IMPRESSION: 1. Left ureteral stent in appropriate position. No obvious calculi visualized. Bowel gas limits eval uation. 2. Nonspecific bowel gas pattern without radiographic evidence for acute process.
[2024-02-21] MEDS: LACTATED RINGERS 1,000 ML IV SCH (12:26)
[2024-02-21] MEDS: DEXAMETHASONE SOD PHOSPHATE 4 MG/ML 1 ML VIAL IV ONE (12:30)
[2024-02-21] MEDS: ONDANSETRON 4 MG/2 ML VIAL IVP ONE (12:30)
[2024-02-21] MEDS: IV FLUID CONTINUATION 1,000 ML IV ONE (12:33)
[2024-02-21] MEDS ORDERED: PROPOFOL 10 MG/ML 20 ML VIAL IV ONE (13:18)
[2024-02-21] MEDS ORDERED: ePHEDrine 50 MG/ML 1 ML VIAL ONE (13:18)
[2024-02-21] MEDS ORDERED: WATER FOR INJECTION, STERILE 10 ML VIAL IV ONE (13:18)
[2024-02-21] MEDS ORDERED: fentaNYL (PF) 50 MCG/ML 2 ML AMP ONE (13:18)
[2024-02-21] MEDS ORDERED: LIDOCAINE 1% INJ 10MG/ML (20 ML MDV) ONE (13:18)
[2024-02-21 14:05] VITALS: TEMP 97.8
--- NOTE | 2024-02-21 14:11 | P.OP ---
Date of Procedure: 02/21/24 Preoperative Diagnosis: Left ureteral stone Postoperative Diagnosis: Same Procedure(s) Performed: Cystoscopy, left ureteroscopy, stent removal Implants: None Anesthesia: VIRGILIOA Surgeon: Roger Nazario Estimated Blood Loss (ml): 5 Pathology: none sent Condition: stable Disposition: PACU Indications for Procedure: This is a 78-year-old female with a history of a 6 mm left-sided proximal ureteral stone, status post stent insertion on February 08. Presents today for left- sided ureteroscopy with holmium laser, aware the risk which includes but not limited to bleeding, infection, injury to the ureter Operative Findings: Normal ureteroscopy, in no ureteral stone or renal stone visualized Description of Procedure: Patient brought to the operating room, general anesthesia was induced. He was prepped and draped in sterile fashion placed in dorsolithotomy position. Cystoscopy fitted with a 21 Gabonese sheath was inserted per urethra, cystoscopy was performed which showed no abnormality within the bladder, the stent was grasped and removed to the meatus. Next a sensor wire was advanced through the stent and the stent was removed with the wire in place. Next under fluoroscopy 1113 Gabonese access sheath was passed over the wire into the proximal ureter. Next a flexible ureteroscope was inserted through the access sheath, a complete renoscopy was performed which showed no evidence of stones within the kidney, on fluoroscopy there was no radiopaque density seen. At this point pullback ureteroscopy was performed showed no injury to the ureter or any ureteral stones. There was no ureteral edema thus a stent was not placed. The bladder was emptied at the end of the case. Patient tolerated procedure well was taken recovery in stable condition
--- NOTE | 2024-02-21 14:35 | FL ---
Fluoroscopy History: Left Ureteral Stone 2 sec fluoro, dap .[id number] mGym2
[2024-02-21 15:06] VITALS: BP 127/79; PULSE 65; RESP 16
== END 2024-02-21 15:34 | disposition home or self-care (01) ==
LOC: OR 11:29
PROVIDERS: ATTEND Urology
DX: N20.1 Calculus of ureter (principal); Z96.0 Presence of urogenital implants; M06.9 Rheumatoid arthritis, unspecified; M79.7 Fibromyalgia; Z88.5 Allergy status to narcotic agent; Z79.899 Other long term (current) drug therapy
CPT/HCPCS: 74018; 52310; C1769; J1100; J0690; J2405; J2001; J3010; J2704

== ENCOUNTER → 2024-05-17 | Outpatient (CLI) | payer MEDICARE ==
--- NOTE | 2024-05-18 08:28 | MM ---
Reason for Exam: Screening (asymptomatic). Last screening mammogram was performed 12 month(s) ago. Patient History: Menarche at age 15. First Full-Term at age 30. Postmenopausal. Bilateral Cyst Aspiration. Risk Values: Yoko 5 year model risk: 2.0%. NCI Lifetime model risk: 4.0%. Prior Study Comparison: 03/16/2022 Bilateral MG 3D screening mammo w/cad, [facility]. 05/16/2023 Bilateral MG 3D screening mammo w/cad, [facility]. 05/19/2023 Left MG 3D work up w/cad LT, [facility]. Tissue Density: The breasts are heterogeneously dense, which may obscure small masses. Findings: Analyzed By CAD. There is no suspicious group of microcalcifications or new suspicious mass in either breast. Overall Assessment: Benign, BI-RAD 2 Management: Screening Mammogram of both breasts in 1 year. . Patient should continue monthly self-breast exams. A clinical breast exam by your physician is recommended on an annual basis. This exam should not preclude additional follow-up of suspicious palpable abnormalities. Note on Yoko scores and lifetime risk: 1. A Oyko score greater than 3% is considered moderate risk. If this is the case, consider specialist referral to assess eligibility for a risk reducing agent. 2. If overall lifetime risk for the development of breast cancer is 20% or higher, the patient may qualify for future screening with alternating mammogram and breast MRI. Electronically signed and approved by: Jason Lr M.D. Radiologis
== END | disposition home or self-care (01) ==
LOC: RADMAMWWP 08:27
PROVIDERS: ATTEND Family Medicine
DX: Z12.31 Encounter for screening mammogram for malignant neoplasm of breast
CPT/HCPCS: 77063; 77067